=== PATIENT | male | born 1975 | race Hispanic/Latino ===

== ENCOUNTER 2019-02-12 15:47 | Inpatient (IN) | payer OTHER | END 2019-02-13 12:49 | disposition home or self-care (01) | LOC: EDH 15:47 → EDHIP 20:17 ==

== ENCOUNTER 2020-02-16 11:49 | Emergency (ER) | payer OTHER, SELFPAY ==
[~2020-02-16 11:49] MED LIST: [UNRECOGNIZED DRUG - MIXTURE] PO
[2020-02-16] MEDS ORDERED: ONDANSETRON HCL 4 MG/2 ML VIAL ONE (12:20)
[2020-02-16] MEDS ORDERED: SODIUM CHLORIDE 0.9% 1000ML 1,000 ML IV ONE ×2 (12:22→13:48)
[2020-02-16] MEDS ORDERED: INSULIN HUMULIN R 100 UNIT/ML 3ML ONE (12:22)
[2020-02-16 12:27] LABS: BASOPHILS % (AUTO) 0.9 % (0.0-5.0); EOSINOPHILS % (AUTO) 1.3 % (0.0-8.0); HEMATOCRIT 43.3 % (42-54); LYMPHOCYTES % (AUTO) 32.6 % (21.0-51.0); MEAN CORPUSCULAR HEMOGLOBIN 29.6 pg (27.0-33.0); MEAN CORPUSCULAR HGB CONC 33.9 g/dL (32.0-36.0); MEAN CORPUSCULAR VOLUME 87.3 fL (79-99); MONOCYTES % (AUTO) 8.3 % (3.0-13.0); NEUTROPHILS % (AUTO) 56.7 % (40.0-77.0); PLATELET COUNT (AUTO) 229 K/uL (130-400); RED BLOOD CELL COUNT(AUTO) 4.96 MIL/uL (4.50-6.20); RED CELL DISTRIBUTION WIDTH 12.4 % (11.0-15.5); WHITE BLOOD COUNT (AUTO) 4.6 K/uL (4.8-10.8)
[2020-02-16 12:39] LABS: APPEARANCE,URINE CLEAR (CLEAR); BILIRUBIN,URINE NEGATIVE (NEGATIVE); COLOR,URINE YELLOW (YELLOW); GLUCOSE, URINE (UA) >=1000 mg/dL (NEGATIVE); KETONES,URINE NEGATIVE (NEGATIVE); LEUKOCYTE ESTERASE ,URINE NEGATIVE (NEGATIVE); NITRATE,URINE NEGATIVE (NEGATIVE); OCCULT BLOOD,URINE NEGATIVE (NEGATIVE); PROTEIN,URINE 30 mg/dL (NEGATIVE); UROBILINOGEN,URINE 0.2 mg/dL (0.2-1.0)
[2020-02-16 12:47] LABS: AMPHET/METH SCREEN,URINE NEGATIVE (NEGATIVE); BARBITURATE SCREEN, URINE NEGATIVE (NEGATIVE); BENZODIAZEPINES SCREEN,URINE NEGATIVE (NEGATIVE); CANNABINOID SCREEN,URINE NEGATIVE (NEGATIVE); COCAINE SCREEN,URINE NEGATIVE (NEGATIVE); OPIATE SCREEN,URINE NEGATIVE (NEGATIVE); PHENCYCLIDINE SCREEN,URINE NEGATIVE (NEGATIVE)
[2020-02-16 12:48] LABS: CREATININE 1.4 mg/dL (0.5-1.5); POTASSIUM 3.9 mmol/L (3.5-5.1)
[2020-02-16 12:49] LABS: BACTERIA,URINE None Seen /HPF (None Seen); RBC,URINE None Seen /HPF (0-1); SQUAMOUS EPITHELIAL CELL,UR 0-2 /HPF (0-2); WBC,URINE 0-1 /HPF (0-1)
[2020-02-16 12:53] LABS: BILIRUBIN,TOTAL 0.5 mg/dL (0.2-1.0)
== END 2020-02-16 15:22 | disposition home or self-care (01) ==
LOC: EDH 11:49
DX: E11.65 Type 2 diabetes mellitus with hyperglycemia (principal); R51 Headache; E86.0 Dehydration
CPT/HCPCS: 36415; 80053; 80305; 81001; 82010; 82550; 82948 ×2; 84484; 85025; 93005; 96361; 96374; 96375; 99284; J1815; J2405; J7030 ×2

== ENCOUNTER 2022-02-12 10:27 | Emergency (ER) | payer OTHER ==
[~2022-02-12] VITALS: Ht 165.1 cm; Wt 57.6 kg
[2022-02-12 10:32] VITALS: BP 121/79
[2022-02-12 10:47] LABS: BASOPHILS % (AUTO) 0.6 % (0.0-5.0); EOSINOPHILS % (AUTO) 0.7 % (0.0-8.0); LYMPHOCYTES % (AUTO) 20.4 % (21.0-51.0); MEAN CORPUSCULAR HEMOGLOBIN 29.7 pg (27.0-33.0); MEAN CORPUSCULAR HGB CONC 33.9 g/dL (32.0-36.0); MEAN CORPUSCULAR VOLUME 87.4 fL (79-99); MONOCYTES % (AUTO) 5.5 % (3.0-13.0); NEUTROPHILS % (AUTO) 72.5 % (40.0-77.0); PLATELET COUNT (AUTO) 221 K/uL (130-400); RED BLOOD CELL COUNT(AUTO) 4.35 MIL/uL (4.50-6.20); RED CELL DISTRIBUTION WIDTH 12.3 % (11.0-15.5); WHITE BLOOD COUNT (AUTO) 6.8 K/uL (4.8-10.8)
[2022-02-12 11:46] LABS: CREATININE 1.3 mg/dL (0.5-1.5); POTASSIUM 3.7 mmol/L (3.5-5.1)
[2022-02-12 11:49] LABS: TOTAL PROTEIN, SERUM 7.6 g/dL (6.0-8.3)
[2022-02-12 12:48] LABS: APPEARANCE,URINE CLEAR (CLEAR); BILIRUBIN,URINE NEGATIVE (NEGATIVE); COLOR,URINE YELLOW (YELLOW); GLUCOSE, URINE (UA) >=1000 mg/dL (NEGATIVE); KETONES,URINE NEGATIVE (NEGATIVE); LEUKOCYTE ESTERASE ,URINE NEGATIVE (NEGATIVE); NITRATE,URINE NEGATIVE (NEGATIVE); OCCULT BLOOD,URINE TRACE-INTACT (NEGATIVE); PH,URINE 5.5 (5.0-8.0); PROTEIN,URINE 30 mg/dL (NEGATIVE); UROBILINOGEN,URINE 0.2 mg/dL (0.2-1.0)
[2022-02-12] MEDS ORDERED: 0.9%NACL 1000ML 1,000 ML IV SCH ×2 (13:00→14:00)
[2022-02-12] MEDS ORDERED: INSULIN HUMULIN R 100 UNIT/ML 3ML IV ONE (13:00)
[2022-02-12] MEDS ORDERED: MECLIZINE HCL 25 MG TABLET PO ONE (13:00)
[2022-02-12 13:03] LABS: BACTERIA,URINE Rare /HPF (None Seen); RBC,URINE 0-1 /HPF (0-1); SQUAMOUS EPITHELIAL CELL,UR Rare /HPF (0-2); WBC,URINE 0-1 /HPF (0-1)
[2022-02-12] MEDS ORDERED: FLUCONAZOLE 100 MG TAB PO SCH (13:30)
[2022-02-12 13:34] LABS: AMPHET/METH SCREEN,URINE NEGATIVE (NEGATIVE); BARBITURATE SCREEN, URINE NEGATIVE (NEGATIVE); BENZODIAZEPINES SCREEN,URINE NEGATIVE (NEGATIVE); CANNABINOID SCREEN,URINE NEGATIVE (NEGATIVE); COCAINE SCREEN,URINE NEGATIVE (NEGATIVE); PHENCYCLIDINE SCREEN,URINE NEGATIVE (NEGATIVE)
[2022-02-12 13:34] LABS: CREATINE KINASE, TOTAL 51 U/L (21-232); CRP QUANTITATIVE < 2.00 mg/L (0.00-9.0)
[2022-02-12] MEDS ORDERED: MECL-160 PO (13:42)
== END 2022-02-12 14:49 | disposition home or self-care (01) ==
LOC: EDH 10:27
DX: I95.1 Orthostatic hypotension (principal); E86.0 Dehydration; E11.65 Type 2 diabetes mellitus with hyperglycemia; R42 Dizziness and giddiness
CPT/HCPCS: 99285; 96374; 71045; 82550; 84484; 80053; 80305; 85025; 82948 ×2; 86140; 36415; 93005; 81001; J1815; J7030

== ENCOUNTER 2023-10-16 13:50 | Emergency (ER) | payer OTHER ==
[~2023-10-16] VITALS: Ht 165.1 cm; Wt 63.0 kg
[~2023-10-16 13:50] MED LIST changes: +MECL-302 PO
[2023-10-16 14:43] LABS: BASOPHILS # (AUTO) 0.04 K/uL (0.00-0.20); BASOPHILS % (AUTO) 0.4 % (0.0-5.0); EOSINOPHILS # (AUTO) 0.11 K/uL (0.00-0.70); EOSINOPHILS % (AUTO) 1.2 % (0.0-8.0); HEMATOCRIT 32.1 % (42-54); IMMATURE GRANULOCYTE ABSOLUTE 0.03 K/uL (0-1); LYMPHOCYTES # (AUTO) 2.2 K/uL (1.0-4.8); LYMPHOCYTES % (AUTO) 23.9 % (21.0-51.0); MEAN CORPUSCULAR HEMOGLOBIN 28.7 pg (27.0-33.0); MEAN CORPUSCULAR HGB CONC 34.6 g/dL (32.0-36.0); MEAN CORPUSCULAR VOLUME 82.9 fL (79-99); MONOCYTES # (AUTO) 0.5 K/uL (0.1-1.0); MONOCYTES % (AUTO) 5.3 % (3.0-13.0); NEUTROPHILS # (AUTO) 6.3 K/uL (1.8-7.7); NEUTROPHILS % (AUTO) 68.9 % (40.0-77.0); PLATELET COUNT (AUTO) 306 K/uL (130-400); RED BLOOD CELL COUNT(AUTO) 3.87 MIL/uL (4.50-6.20); WHITE BLOOD COUNT (AUTO) 9.2 K/uL (4.8-10.8)
[2023-10-16 14:59] LABS: CREATININE 1.7 mg/dL (0.5-1.3)
[2023-10-16 15:04] LABS: ALBUMIN 3.3 g/dL (3.5-5.0); BILIRUBIN,TOTAL 0.3 mg/dL (0.2-1.0); TOTAL PROTEIN, SERUM 6.8 g/dL (6.0-8.3)
[2023-10-16] MEDS: 0.9%NACL 1000ML 1,000 ML IV ONE (16:24)
[2023-10-16] MEDS ORDERED: INSULIN HUMULIN R 100 UNIT/ML 3ML SQ ONE (18:30)
[2023-10-16 18:56] VITALS: BP 166/87; PULSE 76; RESP 16; O2SAT 98
[2023-10-16 18:57] LABS: APPEARANCE,URINE CLEAR (CLEAR); BILIRUBIN,URINE NEGATIVE (NEGATIVE); COLOR,URINE COLORLESS (YELLOW); GLUCOSE, URINE (UA) >=1000 mg/dL (NEGATIVE); KETONES,URINE NEGATIVE (NEGATIVE); LEUKOCYTE ESTERASE ,URINE NEGATIVE Leu/uL (NEGATIVE); NITRATE,URINE NEGATIVE (NEGATIVE); PH,URINE 5.5 (5.0-8.0); PROTEIN,URINE NEGATIVE (NEGATIVE); UROBILINOGEN,URINE 0.2 mg/dL (0.2-1.0)
[2023-10-16 19:03] LABS: ADD UA MICROSCOPIC YES
[2023-10-16 19:05] LABS: MUCUS,URINE RARE LPF (None Seen); SQUAMOUS EPITHELIAL CELL,UR RARE /HPF (0-2); WBC,URINE 0-1 /HPF (0-1)
== END 2023-10-16 19:06 | disposition home or self-care (01) ==
LOC: EDH 13:50
DX: E86.0 Dehydration (principal); E11.65 Type 2 diabetes mellitus with hyperglycemia; E78.00 Pure hypercholesterolemia, unspecified; I10 Essential (primary) hypertension
CPT/HCPCS: 99285; 96360; 96361; 84484; 80053; 85025; 82948; 81001; 36415; 93005; J7030

== ENCOUNTER 2024-10-07 14:02 | Inpatient (IN) | payer SELFPAY ==
[~2024-10-07] VITALS: Ht 165.1 cm; Wt 62.0 kg
[2024-10-07 15:05] LABS: BASOPHILS # (AUTO) 0.05 K/uL (0.00-0.20); BASOPHILS % (AUTO) 0.8 % (0.0-5.0); EOSINOPHILS # (AUTO) 0.08 K/uL (0.00-0.70); EOSINOPHILS % (AUTO) 1.2 % (0.0-8.0); HEMATOCRIT 34.4 % (42-54); IMMATURE GRANULOCYTE ABSOLUTE 0.01 K/uL (0-1); LYMPHOCYTES # (AUTO) 2.1 K/uL (1.0-4.8); MEAN CORPUSCULAR HEMOGLOBIN 29.1 pg (27.0-33.0); MEAN CORPUSCULAR HGB CONC 33.7 g/dL (32.0-36.0); MEAN CORPUSCULAR VOLUME 86.4 fL (79-99); MONOCYTES # (AUTO) 0.6 K/uL (0.1-1.0); MONOCYTES % (AUTO) 8.4 % (3.0-13.0); NEUTROPHILS # (AUTO) 3.8 K/uL (1.8-7.7); NEUTROPHILS % (AUTO) 57.4 % (40.0-77.0); PLATELET COUNT (AUTO) 216 K/uL (130-400); RED BLOOD CELL COUNT(AUTO) 3.98 MIL/uL (4.50-6.20); RED CELL DISTRIBUTION WIDTH 12.6 % (11.0-15.5); WHITE BLOOD COUNT (AUTO) 6.5 K/uL (4.8-10.8)
[2024-10-07 15:18] LABS: CREATININE 1.1 mg/dL (0.5-1.3); POTASSIUM 5.4 mmol/L (3.5-5.1)
[2024-10-07 15:54] LABS: ALBUMIN 3.8 g/dL (3.5-5.0); BILIRUBIN,DIRECT 0.1 mg/dL (0.0-0.3); BILIRUBIN,TOTAL 0.2 mg/dL (0.2-1.0); TOTAL PROTEIN, SERUM 7.6 g/dL (6.0-8.3)
[2024-10-07 16:26] LABS: APPEARANCE,URINE CLEAR (CLEAR); BILIRUBIN,URINE NEGATIVE (NEGATIVE); COLOR,URINE LIGHT-YELLOW (YELLOW); GLUCOSE, URINE (UA) >=1000 mg/dL (NEGATIVE); KETONES,URINE NEGATIVE (NEGATIVE); LEUKOCYTE ESTERASE ,URINE NEGATIVE Leu/uL (NEGATIVE); NITRATE,URINE NEGATIVE (NEGATIVE); PH,URINE 5.5 (5.0-8.0); PROTEIN,URINE 10 mg/dL (NEGATIVE); UROBILINOGEN,URINE 0.2 mg/dL (0.2-1.0)
[2024-10-07 16:27] LABS: BACTERIA,URINE RARE /HPF (None Seen); RBC,URINE 0-1 /HPF (0-1); SQUAMOUS EPITHELIAL CELL,UR RARE /HPF (0-2); WBC,URINE 0-1 /HPF (0-1)
[2024-10-07 16:32] LABS: AMPHET/METH SCREEN,URINE NEGATIVE (NEGATIVE); BARBITURATE SCREEN, URINE NEGATIVE (NEGATIVE); BENZODIAZEPINES SCREEN,URINE NEGATIVE (NEGATIVE); CANNABINOID SCREEN,URINE NEGATIVE (NEGATIVE); COCAINE SCREEN,URINE NEGATIVE (NEGATIVE); OPIATE SCREEN,URINE NEGATIVE (NEGATIVE); PHENCYCLIDINE SCREEN,URINE NEGATIVE (NEGATIVE)
[2024-10-07] MEDS: 0.9%NACL 1000ML 1,000 ML IV ONE (16:48)
[2024-10-07] MEDS: metoCLOPRAmide 10 MG/2 ML VIAL IVP ONE (16:49)
[2024-10-07] MEDS: ketOROlac 15MG/ML VIAL (15MG/ML) IV ONE (16:49)
[2024-10-07] MEDS: DiphenhydrAMINE HCL 50 MG/ML VIAL IV ONE (16:49)
--- NOTE | 2024-10-07 16:52 | EKG ---
[facility] Test Date: 2024-10-07 Test Time: 16:50:44 Pat Name: BRYNN BECERRA Department: ED Room: 413 Gender: M Java Analyst: [id number] Requested By: ROSA INMAN Order Number: [id number] Reading MD: Giovanni Dawn Measurements Intervals [place] Rate: 96 P: 64 NE: 179 QRS: 14 QRSD: 96 T: 36 QT: 346 QTc: 437 Interpretive Statements Sinus rhythm Compared to ECG 10/16/2023 14:17:13 No significant changes Electronically Signed On 10-08-2024 20:48:07 CDT by Giovanni Dawn Please click the below link to view image of tracing.
--- NOTE | 2024-10-07 16:58 | ERN ---
General Chief Complaint: Dizzy/Light Headed Stated Complaint: DIZZY Time Seen by MD: 14:08 Time Seen by Midlevel: 14:08 Source: patient History of Present Illness Initial Comments 49-year-old male who presents to the emergency department due to dizziness onset five days. Reports headache, nausea, diarrhea but denies any fever, dysuria, abdominal pain, vomiting or further associated symptoms. PMHx DM, HTN Allergies: Coded Allergies: No Known Drug Allergies (Verified Allergy, 11/29/11) Home Meds Active Scripts Meclizine HCl (Meclizine HCl) 25 Mg Tablet, 25 MG PO TIDP, #30 TAB Prov:CASSIE VICK 02/12/22 Reported Medications [Metformina/Gliben.] 50,0/5 TAB No Conflict Check, 1 PO BIDMEALS 02/13/19 Past Medical History Past Medical History: Diabetes-Type I, Diabetes-Type II, High Cholesterol, Hypertension Medical History Other: NON CPMPLIANT W/MEDS Past Surgical History: None Family History Family History: Negative Social History Social History: Negative ROS Dictation Constitutional: Negative for fever,chills, and weight loss Eyes: Negative for injury, pain,redness, and discharge ENT: Negative for injury,pain or swelling Cardiovascular: Negative for chest pain, palpitations, and edema Respiratory: Negative for shortness of breath, cough, and wheezing, Abdomen/GI: Positive diarrhea, nausea Negative for abdominal pain, vomiting, and constipation Back: Negative for injury and pain : Negative for painful urination, bleeding or discharge MS/Extremity: Negative for injury and deformity Skin: Negative for rash, and discoloration Neuro: Positive for headache, dizziness Negative for weakness, numbness, tingling, and seizure Psych: Negative for suicide ideation, homicidal ideation, and hallucinations Physical Exam Physical Exam Dictation General: awake, alert, no acute distress Head/Face: Normocephalic, atraumatic Eyes: PERRL, EOMI, normal conjunctiva ENT: oral cavity clear, oral mucosa moist Neck: Supple, normal range of motion Cardiovascular: RRR, normal S1/S2 Respiratory: CTAB, no respiratory distress, no rales or wheezes Abdomen: Soft, non-tender, non-distended, no guarding or rebound. Skin: Warm, dry, normal turgor, no rash MS/Extremity: Pulses equal, no cyanosis, neurovascular intact, FROM Neuro: COAx4, GCS 15, strength 5/5, CN 2-12 intact, normal cerebellar exam, normal gait Psych: Normal behavior, mood, and affect normal Results Laboratory and Microbiology Lab and Micro Result Laboratory Tests Test 10/07/24 14:10 10/07/24 14:52 10/07/24 16:10 10/07/24 19:26 Total Bilirubin 0.2 mg/dL (0.2-1.0) Direct Bilirubin 0.1 mg/dL (0.0-0.3) Aspartate Amino Transf (AST/SGOT) 13 U/L (10-37) Alanine Aminotransferase (ALT/SGPT) 19 U/L (12-78) Alkaline Phosphatase 105 U/L (50-136) Total Protein 7.6 g/dL (6.0-8.3) Albumin 3.8 g/dL (3.5-5.0) Lipase 58 U/L (16-77) White Blood Count 6.5 K/uL (4.8-10.8) Red Blood Count 3.98 MIL/uL (4.50-6.20) L Hemoglobin 11.6 g/dL (14.0-18.0) L Hematocrit 34.4 % (42-54) L Mean Corpuscular Volume 86.4 fL (79-99) Mean Corpuscular Hemoglobin 29.1 pg (27.0-33.0) Mean Corpuscular Hemoglobin Concent 33.7 g/dL (32.0-36.0) Red Cell Distribution Width 12.6 % (11.0-15.5) Platelet Count 216 K/uL (130-400) Mean Platelet Volume 10.9 fL (7.5-10.5) H Immature Granulocyte % (Auto) 0.2 % (0-1) Neutrophils (%) (Auto) 57.4 % (40.0-77.0) Lymphocytes (%) (Auto) 32.0 % (21.0-51.0) Monocytes (%) (Auto) 8.4 % (3.0-13.0) Eosinophils (%) (Auto) 1.2 % (0.0-8.0) Basophils (%) (Auto) 0.8 % (0.0-5.0) Neutrophils # (Auto) 3.8 K/uL (1.8-7.7) Lymphocytes # (Auto) 2.1 K/uL (1.0-4.8) Monocytes # (Auto) 0.6 K/uL (0.1-1.0) Eosinophils # (Auto) 0.08 K/uL (0.00-0.70) Basophils # (Auto) 0.05 K/uL (0.00-0.20) Absolute Immature Granulocyte (auto 0.01 K/uL (0-1) Nucleated Red Blood Cells 0.0 % (0.0-0.19) Sodium Level 133 mmol/L (136-145) L Potassium Level 5.4 mmol/L (3.5-5.1) H Chloride Level 98 mmol/L (101-111) L Carbon Dioxide Level 29 mmol/L (21-32) Blood Urea Nitrogen 21 mg/dL (7-18) H Creatinine 1.1 mg/dL (0.5-1.3) Glomerular Filtration Rate Calc 83 mL/min (>90) Random Glucose 264 mg/dL (70-105) H Total Calcium 9.3 mg/dL (8.5-10.1) Urine Color LIGHT-YELLOW (YELLOW) Urine Appearance CLEAR (CLEAR) Urine pH 5.5 (5.0-8.0) Urine Specific [place] 1.024 (1.001-1.031) Urine Protein 10 mg/dL (NEGATIVE) H Urine Glucose (UA) >=1000 mg/dL (NEGATIVE) H Urine Ketones NEGATIVE mg/dL (NEGATIVE) Urine Occult Blood +- (TRACE) (NEGATIVE) H Urine Nitrate NEGATIVE (NEGATIVE) Urine Bilirubin NEGATIVE mg/dL (NEGATIVE) Urine Urobilinogen 0.2 mg/dL (0.2-1.0) Urine Leukocyte Esterase NEGATIVE Romi/uL Urine RBC 0-1 /HPF (0-1) Urine WBC 0-1 /HPF (0-1) Urine Squamous Epithelial Cells RARE /HPF (0-2) Urine Bacteria RARE /HPF (None Seen) Urine Opiates Screen NEGATIVE (NEGATIVE) Urine Barbiturates Screen NEGATIVE (NEGATIVE) Urine Phencyclidine Screen NEGATIVE (NEGATIVE) Urine Amphetamines Screen NEGATIVE (NEGATIVE) Urine Benzodiazepines Screen NEGATIVE (NEGATIVE) Urine Cocaine Screen NEGATIVE (NEGATIVE) Urine Marijuana (THC) Screen NEGATIVE (NEGATIVE) Whole Blood Glucose 296 MG/DL (70-110) H Labs Reviewed?: Yes EKG/XRAY/US/CT/MRI EKG Comment Date: 10/07/2024 Time: 16:50 Rate: 96 EKG interpretation: Sinus rhythm, no STEMI, normal EKG Reviewed by ED Attending CT Scan Comment REASON: Headache ORDERING PHYSICIAN: ROSA INMAN PROCEDURE: HEAD WO - CT HEAD/BRAIN W/O CONTRAST Exam Type: CT HEAD/BRAIN W/O CONTRAST Clinical Information: Headache Comparison: None CT Dose Index (CTDI): 57.33 mGy Dose Length Product (DLP): 956.79 total mGy-cm Findings: The examination is unremarkable. Wood-white matter junction is preserved. No intra or extra axial lesions or fluid collections are seen. Specifically, wood and white matter are normal in signal characteristics with normal caliber of ventricles and periventricular cisterns with no evidence of intra or or extra-axial hemorrhage, lacunar infarct, or major territorial infarct, mass, or other abnormality. There are no infarcts. There are no hemorrhages. Periventricular white matter locations are preserved. The orbital contents and structures of the posterior fossa are intact. Impression: Normal CT of the head. This study was performed using dose reduction techniques to include automated exposure control and/or adjustment of the mA and/or kV according to patient size. DICTATED BY: SARANYA BHAGAT MD DATE: 10/07/241714 [facility] MDM: Differential diagnosis: Dehydration, electrolyte imbalance, intracranial abnormality Rationale:49-year-old male who presents to the emergency department due to dizziness onset five days. Reports headache, nausea, diarrhea but denies any fever, dysuria, abdominal pain, vomiting or further associated symptoms. PMHx DM, HTN Per physical examination patient is in no acute distress, nonlabored breathing, abdomen is soft nontender, neurologically intact. Patient received IV fluids, ketorolac, Reglan and Benadryl headache. Labs obtained indicate a mild anemia with hemoglobin 11.6, mild dehydration with sodium of 133, chloride of 98, BUN 21. Hyperkalemia with 5.4 potassium, calcium gluconate, dextrose, insulin, albuterol, K-Lyte, furosemide administered. CT head within normal limits no a cute abnormalities. Patient vitals stable during ED visit. Patient was educated on findings, diagnosis, decision for admission. Patient verbalized understanding and agrees with admission. Case discussed with hospitalist who accepted admission. Previous outside records reviewed: Old ER visits. Risk of complication and/or morbidity or mortality of patient management: None Medications-Per medication reconciliation Need for hospitalization: Patient does meet criteria for hospitalization. Need for emergency major/minor surgery: No There are no social concerns with this patient. Prescription drug management Prescriptions will include symptomatic care Patient's prior external medical records from other ER visits were reviewed by me as indicated. Prior testing and results from previous visits were reviewed. Prior tests were taken into account with medical decision making and resource utilization, independent historian/historians were used to obtain complete medical history. I independently interpreted the test that were performed, results were reviewed by me and considered findings on radiology if ordered. Medical management and examination interpretation discussions were had by me with other qualified healthcare professionals as indicated for the patient's care. ED Course Orders Procedure Category Date Status Time Cbc With Differential LAB 10/07/24 Complete 14:30 Basic Metabolic Panel LAB 10/07/24 Complete 14:30 Urinalysis LAB 10/07/24 Complete W/Microscopic 14:30 Drug Screen Urine LAB 10/07/24 Complete 14:30 0.9%Nacl 1000ml (Ns PHA 10/07/24 Complete 1000ml) 14:30 Lipase LAB 10/07/24 Complete 14:52 Hepatic Function Panel LAB 10/07/24 Complete 14:52 Metoclopramide 10 PHA 10/07/24 Complete Mg/2 Ml Vial (Reglan 1 15:00 Diphenhydramine Hcl PHA 10/07/24 Complete (Benadryl Inj) 15:00 Ketorolac PHA 10/07/24 Complete Tromethamine 15mg/Ml 15:00 12 Lead Ekg Tracing- EKG 10/07/24 Complete Technical 16:42 Calcium Gluc 1gm PHA 10/07/24 Complete (Calcium Gluc 1gm 17:30 Insulin Regular, PHA 10/07/24 Complete Human 3ml (Humulin R 17:00 Albuterol 0.083% PHA 10/07/24 Complete 2.5mg/3ml (Proventil 17:30 Sodium Polystyr Sulf PHA 10/07/24 In Process 15gm (Kayexalate 15 17:00 Furosemide 40mg Soln PHA 10/07/24 Complete Udcup (Lasix 40mg S 17:00 Ct Head/Brain W/O CT 4/23/25 Resulted Contrast 16:57 Dextrose 50%-Water PHA 10/07/24 Complete (D50w) 17:00 Vital Signs(Adult CPOE 10/07/24 Transmitted Hospitalist) 18:23 Nurse To Enter Home CPOE 10/07/24 Transmitted Medication 18:23 Admit Orders ADM 10/07/24 Transmitted 18:23 0.9% Nacl 500ml PHA 10/07/24 Complete Iv.Soln (Ns 500ml 20:00 0.9%Nacl 1000ml (Ns PHA 10/07/24 In Process 1000ml) 20:00 Current Medications Medications (Trade) Dose Ordered Sig/Anjana Route PRN Reason Start Time Stop Time Status Last Admin Dose Admin Albuterol Sulfate (Proventil 0.083% 2.5mg/3ml) 10 mg ONCE ONCE IH 10/07/24 17:30 10/07/24 17:31 DC 10/07/24 17:35 Calcium Gluconate 1 gm/Sodium Chloride 110 ml @ 110 mls/hr ONCE ONCE IV 10/07/24 17:30 10/07/24 18:29 DC 10/07/24 18:01 Dextrose (D50w) 50 ml ONCE ONCE IV 10/07/24 17:00 10/07/24 17:07 DC 10/07/24 17:33 Diphenhydramine HCl (BENAdryl INJ) 25 mg ONCE ONCE IV 10/07/24 15:00 10/07/24 15:23 DC 10/07/24 16:49 Furosemide (LASix 40MG SOLN UD CUP) 40 mg ONCE ONCE PO 10/07/24 17:00 10/07/24 17:01 DC 10/07/24 17:26 Insulin Human Regular (humuLIN R 100 UNIT/ML 3ML) 5 unit ONCE ONCE IV 10/07/24 17:00 10/07/24 17:01 DC 10/07/24 17:36 Ketorolac Tromethamine (toRADol) 15 mg ONCE ONCE IV 10/07/24 15:00 10/07/24 15:22 DC 10/07/24 16:49 Metoclopramide HCl (regLAN 10MG IV) 10 mg ONCE ONCE IVP 10/07/24 15:00 10/07/24 15:24 DC 10/07/24 16:49 Sodium Polystyrene Sulfonate (kayEXALate 15 GM/60 ML) 30 gm ONCE PO 10/07/24 17:00 10/08/24 17:01 10/07/24 17:28 Sodium Chloride 500 ml @ 0 mls/hr Q0M ONCE IV 10/07/24 20:00 10/07/24 20:01 DC 10/07/24 20:03 Sodium Chloride 1,000 ml @ 0 mls/hr ONCE ONCE IV 10/07/24 14:30 10/07/24 14:31 DC 10/07/24 16:48 Sodium Chloride 1,000 ml @ 125 mls/hr Q8H IV 10/07/24 20:00 11/06/24 19:59 Vital Signs Date Time Temp Pulse Resp B/P (MAP) Pulse Ox O2 Delivery O2 Flow Rate FiO2 10/07/24 17:35 97 18 10/07/24 14:03 98.2 95 16 144/99 99 Room Air 0 DX & DISP Disposition: Inpatient Decision to Admit Date: Oct 07, 2024 Departure Impression: Primary Impression: Hyperkalemia Additional Impression: Dehydration Condition: Stable Referrals: SELF,REFERRAL (PCP) I performed the substantive portion of the visit. I have reviewed and personally made and approve the management plan that is documented in the notes by myself or the FRANKLIN. I acknowledge full responsibility for the patient's management plan. ROSA INMAN Oct 07, 2024 16:58
--- NOTE | 2024-10-07 17:19 | HMCIMG ---
Exam Type: CT HEAD/BRAIN W/O CONTRAST Clinical Information: Headache Comparison: None CT Dose Index (CTDI): 57.33 mGy Dose Length Product (DLP): 956.79 total mGy-cm Findings: The examination is unremarkable. Wood-white matter junction is preserved. No intra or extra axial lesions or fluid collections are seen. Specifically, wood and white matter are normal in signal characteristics with normal caliber of ventricles and periventricular cisterns with no evidence of intra or or extra-axial hemorrhage, lacunar infarct, or major territorial infarct, mass, or other abnormality. There are no infarcts. There are no hemorrhages. Periventricular white matter locations are preserved. The orbital contents and structures of the posterior fossa are intact. Impression: Normal CT of the head. This study was performed using dose reduction techniques to include automated exposure control and/or adjustment of the mA and/or kV according to patient size.
[2024-10-07] MEDS: kayEXALate 15GM/60ML PO NR (17:28)
[2024-10-07] MEDS: DEXTROSE 50%-WATER 50 ML DISP.SYRIN IV ONE (17:33)
[2024-10-07 17:35] VITALS: PULSE 97; RESP 18
[2024-10-07] MEDS: ALBUTEROL 0.083% 2.5 MG/3 ML INH IH ONE (17:35)
[2024-10-07] MEDS: INSULIN humuLIN R 100 UNIT/ML 3ML IV ONE (17:36)
[2024-10-07] MEDS: CALCIUM GLUC 1GM 1 GM in 0.9%NACL 100ML 100 ML IV ONE (18:01)
--- NOTE | 2024-10-07 18:55 | HP ---
[facility] Date of Service: Oct 07, 2024 Time of Service: 18:55 PCP: Self-referral HISTORY OF PRESENT ILLNESS: This is a 49-year-old Latvian-speaking male past medical history of diabetes , hypertension hyperlipidemia and medical noncompliance who presents to the ED for complaints of dizziness and headache which started five days ago and symptoms had been tolerable however last night he started having non bloody diarrhea x6 episodes and last diarrhea episode was around 0300 am today and patient states dizziness and headache has become more worse so he decided to come tot he ED for evaluation.Patient states he does not have a PCP and only meds he took is metformin 1000mg bid he said. Seen and examined patient in the ED awake,alert and coherent. Latest vital signs temperature 98.2, heart rate 100, blood pressure 128/88 saturation 100% on room air. Labs hemoglobin 11, hematocrit 34, platelet count 216. Sodium 133, potassium 5.4 to 4 , chloride 98, BUN 21, creatinine 1.1 GFR 83 blood sugar 264. Urine toxicology negative. Urinalysis significant with protein, glucose and trace occult blood. CT head result revealed normal. While in the ER patient received 1.5 L NS bolus, Reglan 10 mg IV, Benadryl 25 mg IV, Toradol 15 mg IV, D50 50 mL IV, insulin 5 units IV, Kayexalate 30 g p.o., Lasix 40 mg p.o., calcium gluconate IV, DuoNeb. We will admit patient for further medical jatinder gement REVIEW OF SYSTEMS CONSTITUTIONAL: Denies fevers, chills, or night sweats. No unintentional weight loss reported. NEUROLOGICAL: Complain of headache and dizziness Denies amaurosis fugax, motor weakness, sensory deficit, gait abnormalities, or tremors. ENT: No hearing loss, otalgia, otorrhea, rhinitis, rhinorrhea, hoarseness, or sore throat. CARDIOVASCULAR: Denies any exertional angina, dyspnea on exertion, orthopnea, paroxysmal nocturnal dyspnea, palpitations, life-threatening arrhythmias, claudication. PULMONARY: Denies any shortness of breath, cough, phlegm/sputum, hemoptysis, pleuritic chest pain. SLEEP: Denies morning headaches, daytime somnolence or napping. Denies difficulty falling asleep, staying asleep, waking from sleep. Denies knowledge of snoring. GASTROINTESTINAL: Complained of diarrhea Denies any type of dysphagia to either liquids or solids. Denies nausea, vomiting, pyrosis, early satiety, abdominal pain, diarrhea, constipation, or changes in stool consistency or caliber. Denies coffee-ground emesis, hematemesis, hematochezia, or melanotic stools. GENITOURINARY: Denies frequency, urgency, nocturia, hematuria or incontinence (Storage/Irritative symptoms.) Low urinary stream, straining to void, urinary intermittency or hesitancy, splitting of the voiding stream, terminal dribbling. ENDOCRINOLOGIC: Denies polyuria, polydipsia, polyphagia or heat/cold intoleran amee. HEMATOLOGIC: Denies thrombophilia/previous clots, or coagulopathy/bleeding disorders. ONCOLOGIC: Denies personal history of malignancy. DERMATOLOGIC: Denies rashes or pruritus. PSYCHIATRIC: Denies any suicidal or homicidal ideation. Denies hallucinations. PAST MEDICAL HISTORY: [Medical noncompliance, Diabetes, hypertension and hyperlipidemia ] PAST SURGICAL HISTORY: [ Patient denies] PAST SOCIAL HISTORY: [ Patient lives with girlfriend. Patient denies alcohol tobacco and recreational drug use ] FAMILY HISTORY: [ Noncontributory ] Coded Allergies: No Known Drug Allergies (Verified Allergy, 11/29/11) PHYSICAL EXAM GENERAL APPEARANCE: The patient is awake, alert, and oriented, in no acute cardiopulmonary distress. NEUROLOGICAL: Cranial nerves II-XII grossly intact. Motor is 5/5 in bilateral upper and lower extremities proximal to distal. No sensory deficits. HEENT: Face is symmetric. Pupils are equal and reactive. Extraocular movements are intact. NECK: Supple. No JVD. No thyromegaly. No submental, submandibular, pre- /postauricular, occipital or supraclavicular lymphadenopathy. CHEST: Normal chest expansion. No Telemetry. LUNGS: Absence of any rales, rhonchi or any wheezing. CARDIOVASCULAR: Regular. S1 and S2 normal. No appreciable rubs, murmurs or gallops. ABDOMEN: Soft, nontender, and nondistended. There is no rebound, voluntary guarding, or rigidity. : Deferred. No Stinson. EXTREMITIES: Non-edematous and not cyanotic. No clubbing. Good capillary refill. SKIN: No skin breakdown. Vital Sign (Last 24 Hours) 10/07/24 10/07/24 14:03 17:35 Temp 98.2 Pulse 97 Resp 18 B/P (MAP) 144/99 Pulse Ox 99 O2 Delivery Room Air O2 Flow Rate 0 LABS: Laboratory: Test 10/07/24 16:10 10/07/24 14:52 10/07/24 14:10 Range/Units Urine Color LIGHT-YELLOW YELLOW Urine Appearance CLEAR CLEAR Urine pH 5.5 5.0-8.0 Urine Specific [place] 1.024 1.001-1.031 Urine Protein 10 H NEGATIVE mg/dL Urine Glucose (UA) >=1000 H NEGATIVE mg/dL Urine Ketones NEGATIVE NEGATIVE mg/dL Urine Occult Blood +- (TRACE) H NEGATIVE Urine Nitrate NEGATIVE NEGATIVE Urine Bilirubin NEGATIVE NEGATIVE mg/dL Urine Urobilinogen 0.2 0.2-1.0 mg/dL Urine Leukocyte Esterase NEGATIVE NEGATIVE Romi/uL Urine RBC 0-1 0-1 /HPF Urine WBC 0-1 0-1 /HPF Urine Squamous Epithelial Cells RARE 0-2 /HPF Urine Bacteria RARE None Seen /HPF Urine Opiates Screen NEGATIVE NEGATIVE Urine Barbiturates Screen NEGATIVE NEGATIVE Urine Phencyclidine Screen NEGATIVE NEGATIVE Urine Amphetamines Screen NEGATIVE NEGATIVE Urine Benzodiazepines Screen NEGATIVE NEGATIVE Urine Cocaine Screen NEGATIVE NEGATIVE Urine Marijuana (THC) Screen NEGATIVE NEGATIVE White Blood Count 6.5 4.8-10.8 K/uL Red Blood Count 3.98 L 4.50-6.20 MIL/uL Hemoglobin 11.6 L 14.0-18.0 g/dL Hematocrit 34.4 L 42-54 % Mean Corpuscular Volume 86.4 79-99 fL Mean Corpuscular Hemoglobin 29.1 27.0-33.0 pg Mean Corpuscular Hemoglobin Concent 33.7 32.0-36.0 g/dL Red Cell Distribution Width 12.6 11.0-15.5 % Platelet Count 216 130-400 K/uL Mean Platelet Volume 10.9 H 7.5-10.5 fL Immature Granulocyte % (Auto) 0.2 0-1 % Neutrophils (%) (Auto) 57.4 40.0-77.0 % Lymphocytes (%) (Auto) 32.0 21.0-51.0 % Monocytes (%) (Auto) 8.4 3.0-13.0 % Eosinophils (%) (Auto) 1.2 0.0-8.0 % Basophils (%) (Auto) 0.8 0.0-5.0 % Neutrophils # (Auto) 3.8 1.8-7.7 K/uL Lymphocytes # (Auto) 2.1 1.0-4.8 K/uL Monocytes # (Auto) 0.6 0.1-1.0 K/uL Eosinophils # (Auto) 0.08 0.00-0.70 K/uL Basophils # (Auto) 0.05 0.00-0.20 K/uL Absolute Immature Granulocyte (auto 0.01 0-1 K/uL Nucleated Red Blood Cells 0.0 0.0-0.19 % Sodium Level 133 L 136-145 mmol/L Potassium Level 5.4 H 3.5-5.1 mmol/L Chloride Level 98 L 101-111 mmol/L Carbon Dioxide Level 29 21-32 mmol/L Blood Urea Nitrogen 21 H 7-18 mg/dL Creatinine 1.1 0.5-1.3 mg/dL Glomerular Filtration Rate Calc 83 >90 mL/min Random Glucose 264 H 70-105 mg/dL Total Calcium 9.3 8.5-10.1 mg/dL Total Bilirubin 0.2 0.2-1.0 mg/dL Direct Bilirubin 0.1 0.0-0.3 mg/dL Aspartate Amino Transf (AST/SGOT) 13 10-37 U/L Alanine Aminotransferase (ALT/SGPT) 19 12-78 U/L Alkaline Phosphatase 105 50-136 U/L Total Protein 7.6 6.0-8.3 g/dL Albumin 3.8 3.5-5.0 g/dL Lipase 58 16-77 U/L Current Medications Medications (Trade) Dose Ordered Sig/Anjana Route PRN Reason Start Time Stop Time Status Last Admin Dose Admin Sodium Polystyrene Sulfonate (kayEXALate 15 GM/60 ML) 30 gm ONCE PO 10/07/24 17:00 10/08/24 17:01 10/07/24 17:28 30 GM DIAGNOSTICS / RADIOLOGY: [ ] ASSESSMENT: Dehydration POA Hyperkalemia POA Normocytic normochromic anemia POA Uncontrolled diabetes POA Hypertension POA Diarrhea POA Medical noncompliance POA PLAN: We will admit patient in medical telemetry We will start with consistent carb diet We will give 500 mL NS bolus x1 We will start NS @ 125ml / hr x2 bags and re evaluate We will start patient on Flagyl IV Q 8H We will start on Protonix 40 mg IV daily for GI prophylaxis We will replace electrolytes as needed per protocol We will start on insulin sliding scale AC & HS with hypoglycemia protocol We will add prn medication for fever,pain,cough , nausea and vomiting We will reconcile home meds once medlist available We will request fecal occult blood x1 and GI stool panel We will request labs in am Further orders to follow depending on above results Case discussed with attending physician and came up with above treatment and plan of care. ADVANCED CARE PLANNING 1. Which of the following were discussed? Hospice Care - No Therapeutic options - Yes Advance Directives - No Other discussions - 2. Discussed with who? Patient 3. Voluntary nature of this service was explained to the patient? Yes 4. Amount of time spent - ____24___ 5. Reviewed by Physician? (if this service was performed by NPP) Yes Patient seen and examined by me. Agree with note by AUTOMOTIVE LEASING SALES REPRESENTATIVE SEE ADDITIONAL ORDERS PER CHART DISCUSSED WITH NURSING STAFF BARNEY CELESTIN DAIRY PROCESSING EQUIPMENT OPERATOR Oct 07, 2024 18:55
--- NOTE | 2024-10-07 19:30 | NUR ---
PT CARE ASSUMED AT THIS TIME
[2024-10-07] MEDS: 0.9% NACL 500ML IV.SOLN 500 ML IV ONE (20:03)
[2024-10-07] MEDS ORDERED: PoTASSium chl 10% ELIXIR 20MEQ 20 MEQ/15 ML UDCUP PO PRN (21:00)
[2024-10-07] MEDS ORDERED: MAGNESIUM 2GM PREMIX 50ML 50 ML IV PRN (21:00)
[2024-10-07] MEDS ORDERED: PoTASSium chloRIDE 20MEQ/100ML 100 ML IV PRN (21:00)
[2024-10-07] MEDS ORDERED: DEXTROSE 50%-WATER 50 ML DISP.SYRIN IV PRN (21:00)
[2024-10-07] MEDS ORDERED: GLUCAGON 1MG KIT 1 MG ML IM PRN (21:00)
[2024-10-07] MEDS: 0.9%NACL 1000ML 1,000 ML IV SCH ×2 (21:00→21:42)
[2024-10-07] MEDS: metRONIDazole 500MG/100ML BAG 100 ML IV SCH (21:44)
[2024-10-07] MEDS: INSULIN humuLIN R 100 UNIT/ML 3ML SQ SCH (22:01)
[2024-10-08] VITALS (8 sets, daily range): BP systolic 127–166; BP diastolic 83–103; PULSE 87–95; RESP 17–22; TEMP 97.8–98.4; O2SAT 100
--- NOTE | 2024-10-08 06:21 | NUR ---
PROVIDER PAGED AT THIS TIME REGAURDING BP MEDICATION. PENDING CALL BACK.
--- NOTE | 2024-10-08 07:00 | NUR ---
SPOKE TO PROVIDER LOUIS HENDERSON AT THIS TIME ABOUT BP MEDICATION. PER PROVIDER MEDICATION WILL BE ORDERED.
--- NOTE | 2024-10-08 07:24 | NUR ---
REPORT GIVEN TO CASA DRISCOLL AT THIS TIME
[2024-10-08] MEDS: PANTOPrazole 40 MG/VIAL IVP SCH (07:36)
[2024-10-08] MEDS: amLODIPine 5 MG TAB PO ONE (07:36)
--- NOTE | 2024-10-08 09:38 | NUR ---
DCP: home Pt currently lives with his girlfriend Ntai Mendez [phone]. 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 Pt denies any DME, home health, or provider services. Pt states that he used to go to [facility] for medical care however has not been there "in a while". SW provided pt with community resources for him to access. Pt would want to DC home Addendum: 10/08/24 at 0941 by LU HATCH SS Amended: Links added.
[2024-10-08 10:04] LABS: BASOPHILS # (AUTO) 0.04 K/uL (0.00-0.20); BASOPHILS % (AUTO) 0.6 % (0.0-5.0); EOSINOPHILS # (AUTO) 0.07 K/uL (0.00-0.70); EOSINOPHILS % (AUTO) 1.1 % (0.0-8.0); IMMATURE GRANULOCYTE ABSOLUTE 0.01 K/uL (0-1); LYMPHOCYTES # (AUTO) 1.8 K/uL (1.0-4.8); MEAN CORPUSCULAR HEMOGLOBIN 29.1 pg (27.0-33.0); MEAN CORPUSCULAR HGB CONC 33.6 g/dL (32.0-36.0); MEAN CORPUSCULAR VOLUME 86.4 fL (79-99); MONOCYTES # (AUTO) 0.5 K/uL (0.1-1.0); NEUTROPHILS # (AUTO) 4.2 K/uL (1.8-7.7); NEUTROPHILS % (AUTO) 64.1 % (40.0-77.0); PLATELET COUNT (AUTO) 216 K/uL (130-400); RED BLOOD CELL COUNT(AUTO) 3.82 MIL/uL (4.50-6.20); RED CELL DISTRIBUTION WIDTH 12.7 % (11.0-15.5); WHITE BLOOD COUNT (AUTO) 6.5 K/uL (4.8-10.8)
[2024-10-08 10:15] LABS: HEMOGLOBIN A1C 12.2 % (4.0-6.0)
[2024-10-08 10:34] LABS: ALBUMIN 3.6 g/dL (3.5-5.0); BILIRUBIN,TOTAL 0.4 mg/dL (0.2-1.0); CREATININE 0.7 mg/dL (0.5-1.3); MAGNESIUM 1.5 mg/dL (1.80-2.40); POTASSIUM 3.9 mmol/L (3.5-5.1); THYROID STIMULATING HORMONE 0.01 uIU/mL (0.36-3.74); TOTAL PROTEIN, SERUM 7.1 g/dL (6.0-8.3)
--- NOTE | 2024-10-08 12:00 | NUR ---
patient alert and oriented x4, vitals stable on room air, ambulatory, steady, denies weakness/pain, IV patent to RAC infusing NS per order.
--- NOTE | 2024-10-08 13:08 | NUR ---
gave report to RAMBO Aldana on 4th floor
[2024-10-08] MEDS ORDERED: METF-446 PO (13:15)
--- NOTE | 2024-10-08 14:28 | PN ---
[facility] PROGRESS NOTE Date of Service: Oct 08, 2024 Time of Service: 14:20 SUBJECTIVE: [This is a 49-year-old male admitted with complaints of dizziness and headaches, nonbloody diarrhea. On admission, patient was noted with elevated blood sugar ranging in the high 200s. This morning, A1c was collected which came back elevated at 12.2%. Magnesium 1.5. THS extremely low, we will order Free t3, t4. Consulting endocrinology. REVIEW OF SYSTEMS CONSTITUTIONAL: Denies fevers, chills, or night sweats. No unintentional weight loss reported. NEUROLOGICAL: Complain of headache and dizziness Denies amaurosis fugax, motor weakness, sensory deficit, gait abnormalities, or tremors. ENT: No hearing loss, otalgia, otorrhea, rhinitis, rhinorrhea, hoarseness, or sore throat. CARDIOVASCULAR: Denies any exertional angina, dyspnea on exertion, orthopnea, paroxysmal nocturnal dyspnea, palpitations, life-threatening arrhythmias, claudication. PULMONARY: Denies any shortness of breath, cough, phlegm/sputum, hemoptysis, pleuritic chest pain. SLEEP: Denies morning headaches, daytime somnolence or napping. Denies difficulty falling asleep, staying asleep, waking from sleep. Denies knowledge of snoring. GASTROINTESTINAL: Complained of diarrhea Denies any type of dysphagia to either liquids or solids. Denies nausea, vomiting, pyrosis, early satiety, abdominal pain, diarrhea, constipation, or changes in stool consistency or caliber. Denies coffee-ground emesis, hematemesis, hematochezia, or melanotic stools. GENITOURINARY: Denies frequency, urgency, nocturia, hematuria or incontinence (Storage/Irritative symptoms.) Low urinary stream, straining to void, urinary intermittency or hesitancy, splitting of the voiding stream, terminal dribbling. ENDOCRINOLOGIC: Denies polyuria, polydipsia, polyphagia or heat/cold intolerances. HEMATOLOGIC: Denies thrombophilia/previous clots, or coagulopathy/bleeding disorders. ONCOLOGIC: Denies personal history of malignancy. DERMATOLOGIC: Denies rashes or pruritus. PSYCHIATRIC: Denies any suicidal or homicidal ideation. Denies hallucinations. PHYSICAL EXAM GENERAL APPEARANCE: The patient is awake, alert, and oriented, in no acute cardiopulmonary distress. NEUROLOGICAL: Cranial nerves II-XII grossly intact. Motor is 5/5 in bilateral upper and lower extremities proximal to distal. No sensory deficits. HEENT: Face is symmetric. Pupils are equal and reactive. Extraocular movements are intact. NECK: Supple. No JVD. No thyromegaly. No submental, submandibular, pre- /postauricular, occipital or supraclavicular lymphadenopathy. CHEST: Normal chest expansion. No Telemetry. LUNGS: Absence of any rales, rhonchi or any wheezing. CARDIOVASCULAR: Regular. S1 and S2 normal. No appreciable rubs, murmurs or gallops. ABDOMEN: Soft, nontender, and nondistended. There is no rebound, voluntary guarding, or rigidity. : Deferred. No Stinson. EXTREMITIES: Non-edematous and not cyanotic. No clubbing. Good capillary refill. SKIN: No skin breakdown. Vital Signs (last 8hr) Date Time Temp Pulse Resp B/P (MAP) Pulse Ox O2 Delivery O2 Flow Rate FiO2 10/08/24 12:30 93 17 127/90 10/08/24 11:00 98.1 92 18 162/96 100 10/08/24 09:38 98.1 10/08/24 08:15 87 155/88 99 10/08/24 06:57 88 21 179/107 100 Room Air* 0 21 LABS: Laboratory: Test 10/08/24 11:53 10/08/24 09:51 10/07/24 16:10 10/07/24 14:10 Range/Units Whole Blood Glucose 219 H 70-110 MG/DL White Blood Count 6.5 4.8-10.8 K/uL Red Blood Count 3.82 L 4.50-6.20 MIL/uL Hemoglobin 11.1 L 14.0-18.0 g/dL Hematocrit 33.0 L 42-54 % Mean Corpuscular Volume 86.4 79-99 fL Mean Corpuscular Hemoglobin 29.1 27.0-33.0 pg Mean Corpuscular Hemoglobin Concent 33.6 32.0-36.0 g/dL Red Cell Distribution Width 12.7 11.0-15.5 % Platelet Count 216 130-400 K/uL Mean Platelet Volume 11.0 H 7.5-10.5 fL Immature Granulocyte % (Auto) 0.2 0-1 % Neutrophils (%) (Auto) 64.1 40.0-77.0 % Lymphocytes (%) (Auto) 27.0 21.0-51.0 % Monocytes (%) (Auto) 7.0 3.0-13.0 % Eosinophils (%) (Auto) 1.1 0.0-8.0 % Basophils (%) (Auto) 0.6 0.0-5.0 % Neutrophils # (Auto) 4.2 1.8-7.7 K/uL Lymphocytes # (Auto) 1.8 1.0-4.8 K/uL Monocytes # (Auto) 0.5 0.1-1.0 K/uL Eosinophils # (Auto) 0.07 0.00-0.70 K/uL Basophils # (Auto) 0.04 0.00-0.20 K/uL Absolute Immature Granulocyte (auto 0.01 0-1 K/uL Nucleated Red Blood Cells 0.0 0.0-0.19 % Sodium Level 136 136-145 mmol/L Potassium Level 3.9 3.5-5.1 mmol/L Chloride Level 101 101-111 mmol/L Carbon Dioxide Level 31 21-32 mmol/L Blood Urea Nitrogen 13 7-18 mg/dL Creatinine 0.7 0.5-1.3 mg/dL Glomerular Filtration Rate Calc 114 >90 mL/min Random Glucose 195 H 70-105 mg/dL Hemoglobin A1c 12.2 H 4.0-6.0 % Estimated Average Glucose (eAG) 303 H 70-126 mg/dL Total Calcium 8.9 8.5-10.1 mg/dL Magnesium Level 1.50 L 1.80-2.40 mg/dL Total Bilirubin 0.4 # 0.2-1.0 mg/dL Aspartate Amino Transf (AST/SGOT) 14 10-37 U/L Alanine Aminotransferase (ALT/SGPT) 18 12-78 U/L Alkaline Phosphatase 76 # 50-136 U/L Total Creatine Kinase 50 21-232 U/L Total Protein 7.1 6.0-8.3 g/dL Albumin 3.6 3.5-5.0 g/dL Triglycerides Level 131 30-200 mg/dL Cholesterol Level 155 <200 mg/dL LDL Cholesterol 85 0-99 mg/dL HDL Cholesterol 55 29-71 mg/dL Thyroid Stimulating Hormone (TSH) 0.01 L 0.36-3.74 uIU/mL Urine Color LIGHT-YELLOW YELLOW Urine Appearance CLEAR CLEAR Urine pH 5.5 5.0-8.0 Urine Specific Caspian 1.024 1.001-1.031 Urine Protein 10 H NEGATIVE mg/dL Urine Glucose (UA) >=1000 H NEGATIVE mg/dL Urine Ketones NEGATIVE NEGATIVE mg/dL Urine Occult Blood +- (TRACE) H NEGATIVE Urine Nitrate NEGATIVE NEGATIVE Urine Bilirubin NEGATIVE NEGATIVE mg/dL Urine Urobilinogen 0.2 0.2-1.0 mg/dL Urine Leukocyte Esterase NEGATIVE NEGATIVE Romi/uL Urine RBC 0-1 0-1 /HPF Urine WBC 0-1 0-1 /HPF Urine Squamous Epithelial Cells RARE 0-2 /HPF Urine Bacteria RARE None Seen /HPF Urine Opiates Screen NEGATIVE NEGATIVE Urine Barbiturates Screen NEGATIVE NEGATIVE Urine Phencyclidine Screen NEGATIVE NEGATIVE Urine Amphetamines Screen NEGATIVE NEGATIVE Urine Benzodiazepines Screen NEGATIVE NEGATIVE Urine Cocaine Screen NEGATIVE NEGATIVE Urine Marijuana (THC) Screen NEGATIVE NEGATIVE Direct Bilirubin 0.1 0.0-0.3 mg/dL Lipase 58 16-77 U/L Current Medications Medications (Trade) Dose Ordered Sig/Anjana Route PRN Reason Start Time Stop Time Status Last Admin Dose Admin Amlodipine Besylate (NorvASC 5MG TAB) 5 mg DAILY PO 10/09/24 09:00 11/08/24 08:59 Dextrose (D50w) 50 ml AD PRN IV HYPOGLYCEMIA PROTOCOL 10/07/24 21:00 11/06/24 20:59 Glucagon (Glucagon 1mg Kit) 1 mg AD PRN IM HYPOGLYCEMIA PROTOCOL 10/07/24 21:00 11/06/24 20:59 Insulin Human Regular (humuLIN R 100 UNIT/ML 3ML) INSULIN SLIDING SCAL... ACHS SQ 10/07/24 21:00 11/06/24 20:59 10/08/24 12:20 3 UNIT Magnesium Sulfate 50 ml @ 0 mls/hr PROTOCOL PRN IV OTHER [SEE ORDER COMMENTS] 10/07/24 21:00 11/06/24 20:59 Metronidazole/ Sodium Chloride 100 ml @ 100 mls/hr Q8H IV 10/07/24 21:00 10/17/24 20:59 10/08/24 12:22 100 MLS/HR Pantoprazole Sodium (PROTonix 40MG INJ) 40 mg DAILY IVP 10/08/24 09:00 11/07/24 08:59 10/08/24 07:36 40 MG Potassium Chloride 100 ml @ 100 mls/hr AD PRN IV POTASSIUM PROTOCOL 10/07/24 21:00 11/06/24 20:59 Potassium Chloride (K-Dur/Klor-Con 20meq) 20 meq AD PRN PO POTASSIUM PROTOCOL 10/07/24 21:00 11/06/24 20:59 Potassium Chloride (KCl 10% Elixir 20meq/15ml) 20 meq AD PRN PO POTASSIUM PROTOCOL 10/07/24 21:00 11/06/24 20:59 Sodium Polystyrene Sulfonate (kayEXALate 15 GM/60 ML) 30 gm ONCE PO 10/07/24 17:00 10/08/24 11:09 DC 10/07/24 17:28 30 GM Sodium Chloride 1,000 ml @ 125 mls/hr Q8H IV 10/07/24 20:00 10/08/24 11:09 DC 10/08/24 04:31 125 MLS/HR Sodium Chloride 1,000 ml @ 125 mls/hr Q8H IV 10/07/24 21:00 11/06/24 20:59 10/08/24 12:28 125 MLS/HR DIAGNOSTICS / RADIOLOGY: [ ] ASSESSMENT: Rule out hyperthyroidism, POA Extremely low TSH level, POA Dehydration POA Hyperkalemia POA Normocytic normochromic anemia POA Uncontrolled diabetes POA Hypertension POA Diarrhea POA Medical noncompliance POA Hypomagnesemia, POA PLAN: May discontinue telemetry Continue consistent carb diet Continue with NS at 100 mL/hour We will order A1c, free T3 and T4 Continue with Flagyl IV Q 8H Continue Protonix 40 mg IV daily for GI prophylaxis We will replace electrolytes as needed per protocol Patient will have magnesium sulfate2 g IV x1 Continue insulin sliding scale AC & HS with hypoglycemia protocol We will add prn medication for fever,pain,cough , nausea and vomiting We will reconcile home meds once medlist available We will request fecal occult blood x1 and GI stool panel We will request labs in am Further orders to follow depending on above results Case discussed with attending physician and came up with above treatment and plan of care. ATTESTATION BY PHYSICIAN I have seen and examined the patient. I reviewed the documentation, medical decision making, and treatment plan as noted by the mid-level provider above. I agree with the findings and plan of care. Raafela Gay MD, [facility] Oct 08, 2024 14:27
[2024-10-08] MEDS ORDERED: MAGNESIUM 2GM PREMIX 50ML 50 ML IV SCH (14:30)
--- NOTE | 2024-10-08 16:36 | CONS ---
CONSULT NOTE: endocrinology consult chief complaint: dizziness and headache reason for consult:uncontrolled dm-2 Date of Service: Oct 08, 2024 HISTORY OF PRESENT ILLNESS: This is a 49-year-old Nepali-speaking male past medical history of diabetes , hypertension hyperlipidemia and medical noncompliance who presents to the ED for complaints of dizziness and headache which started five days ago and symptoms had been tolerable however last he started having non bloody diarrhea x6 episodes. patient states dizziness and headache has become more worse so he decided to come tot he ED for evaluation.Patient states he does not have a PCP and only meds he took is metformin 1000mg bid patient is awake,alert and coherent. Latest vital signs temperature 98.2, heart rate 100, blood pressure 128/88 saturation 100% on room air. Labs hemoglobin 11, hematocrit 34, platelet count 216. Sodium 133, potassium 5.4 to 4 , chloride 98, BUN 21, creatinine 1.1 GFR 83 blood sugar 264. Urine toxicology negative. Urinalysis significant with protein, glucose and trace occult blood. CT head result revealed normal. While in the ER patient received 1.5 L NS bolus, Reglan 10 mg IV, Benadryl 25 mg IV, Toradol 15 mg IV, D50 50 mL IV, insulin 5 units IV, Kayexalate 30 g p.o., Lasix 40 mg p.o., calcium gluconate IV, DuoNeb. he has dm-2 for many years and use metformin 500 mg bid but non-compliant. glucose at home runs greater than 300 mg.dl. hba1c 12.2% reports palpitations, heat intolerance and more than 15 lbs weight loss. TSH <0.01 and t 4 free 1.13 denies goiter or exophthalmos. my suspicion is high for graves disease. REVIEW OF SYSTEMS CONSTITUTIONAL: Denies fevers, chills, or night sweats. No unintentional weight loss reported. NEUROLOGICAL: Complain of headache and dizziness Denies amaurosis fugax, motor weakness, sensory deficit, gait abnormalities, or tremors. ENT: No hearing loss, otalgia, otorrhea, rhinitis, rhinorrhea, hoarseness, or sore throat. CARDIOVASCULAR: Denies any exertional angina, dyspnea on exertion, orthopnea, paroxysmal nocturnal dyspnea, palpitations, life-threatening arrhythmias, claudication. PULMONARY: Denies any shortness of breath, cough, phlegm/sputum, hemoptysis, pleuritic chest pain. SLEEP: Denies morning headaches, daytime somnolence or napping. Denies difficulty falling asleep, staying asleep, waking from sleep. Denies knowledge of snoring. GASTROINTESTINAL: Complained of diarrhea Denies any type of dysphagia to either liquids or solids. Denies nausea, vomiting, pyrosis, early satiety, abdominal pain, diarrhea, constipation, or changes in stool consistency or caliber. Denies coffee-ground emesis, hematemesis, hematochezia, or melanotic stools. GENITOURINARY: Denies frequency, urgency, nocturia, hematuria or incontinence (Storage/Irritative symptoms.) Low urinary stream, straining to void, urinary intermittency or hesitancy, splitting of the voiding stream, terminal dribbling. ENDOCRINOLOGIC: Denies polyuria, polydipsia, polyphagia or heat/cold intolerances. HEMATOLOGIC: Denies thrombophilia/previous clots, or coagulopathy/bleeding disorders. ONCOLOGIC: Denies personal history of malignancy. DERMATOLOGIC: Denies rashes or pruritus. PSYCHIATRIC: Denies any suicidal or homicidal ideation. Denies hallucinations. PAST MEDICAL HISTORY: [Medical noncompliance, Diabetes, hypertension and hyperlipidemia ] PAST SURGICAL HISTORY: [ Patient denies] PAST SOCIAL HISTORY: [ Patient lives with girlfriend. Patient denies alcohol tobacco and recreational drug use ] FAMILY HISTORY: [ Noncontributory ] Coded Allergies: No Known Drug Allergies (Verified Allergy, 11/29/11) PHYSICAL EXAM GENERAL APPEARANCE: The patient is awake, alert, and oriented, in no acute cardiopulmonary distress. NEUROLOGICAL: Cranial nerves II-XII grossly intact. Motor is 5/5 in bilateral upper and lower extremities proximal to distal. No sensory deficits. HEENT: Face is symmetric. Pupils are equal and reactive. Extraocular movements are intact. NECK: Supple. No JVD. No thyromegaly. No submental, submandibular, pre-/postauricular, occipital or supraclavicular lymphadenopathy. CHEST: Normal chest expansion. No Telemetry. LUNGS: Absence of any rales, rhonchi or any wheezing. CARDIOVASCULAR: Regular. S1 and S2 normal. No appreciable rubs, murmurs or gallops. ABDOMEN: Soft, nontender, and nondistended. There is no rebound, voluntary guarding, or rigidity. : Deferred. No Stinson. EXTREMITIES: Non-edematous and not cyanotic. No clubbing. Good capillary refill. SKIN: No skin breakdown. ASSESSMENT: he has dm-2 for many years and use metformin 500 mg bid but non-compliant. glucose at home runs greater than 300 mg.dl. hba1c 12.2% thyrotoxicosis reports palpitations, heat intolerance and more than 15 lbs weight loss. TSH <0.01 and t 4 free 1.13 denies goiter or exophthalmos. my suspicion is high for graves disease. Dehydration POA improving Hyperkalemia POA improving Normocytic normochromic anemia POA Hypertension POA Diarrhea POA Medical noncompliance POA PLAN: start lantus 10 units daily increase low dose ssi to medium dose ssi i will start premeal insulin if persistent hyperglycemia start methimazole 5 mg daily TSI ordered. thyroid u/s ordered monitor glucose qx6 hourly patient wwill need novolin 70/30 insulin 20 units and 10 units pm thanks for allowing me to participate in patient care and will continue to follow up. Vital Signs 10/08/24 10/08/24 06:57 15:53 Temp 97.9 Pulse 92 Resp 18 B/P (MAP) 150/101 Pulse Ox 100 O2 Delivery Room Air O2 Flow Rate 0 FiO2 21 Hematology Labs: Test 10/08/24 09:51 Range/Units White Blood Count 6.5 4.8-10.8 K/uL Red Blood Count 3.82 L 4.50-6.20 MIL/uL Hemoglobin 11.1 L 14.0-18.0 g/dL Hematocrit 33.0 L 42-54 % Mean Corpuscular Volume 86.4 79-99 fL Mean Corpuscular Hemoglobin 29.1 27.0-33.0 pg Mean Corpuscular Hemoglobin Concent 33.6 32.0-36.0 g/dL Red Cell Distribution Width 12.7 11.0-15.5 % Platelet Count 216 130-400 K/uL Mean Platelet Volume 11.0 H 7.5-10.5 fL Immature Granulocyte % (Auto) 0.2 0-1 % Neutrophils (%) (Auto) 64.1 40.0-77.0 % Lymphocytes (%) (Auto) 27.0 21.0-51.0 % Monocytes (%) (Auto) 7.0 3.0-13.0 % Eosinophils (%) (Auto) 1.1 0.0-8.0 % Basophils (%) (Auto) 0.6 0.0-5.0 % Neutrophils # (Auto) 4.2 1.8-7.7 K/uL Lymphocytes # (Auto) 1.8 1.0-4.8 K/uL Monocytes # (Auto) 0.5 0.1-1.0 K/uL Eosinophils # (Auto) 0.07 0.00-0.70 K/uL Basophils # (Auto) 0.04 0.00-0.20 K/uL Absolute Immature Granulocyte (auto 0.01 0-1 K/uL Nucleated Red Blood Cells 0.0 0.0-0.19 % Chemistry Labs: Test 10/08/24 15:21 10/08/24 09:51 10/07/24 14:10 Range/Units Whole Blood Glucose 175 H 70-110 MG/DL Sodium Level 136 136-145 mmol/L Potassium Level 3.9 3.5-5.1 mmol/L Chloride Level 101 101-111 mmol/L Carbon Dioxide Level 31 21-32 mmol/L Blood Urea Nitrogen 13 7-18 mg/dL Creatinine 0.7 0.5-1.3 mg/dL Glomerular Filtration Rate Calc 114 >90 mL/min Random Glucose 195 H 70-105 mg/dL Hemoglobin A1c 12.2 H 4.0-6.0 % Estimated Average Glucose (eAG) 303 H 70-126 mg/dL Total Calcium 8.9 8.5-10.1 mg/dL Magnesium Level 1.50 L 1.80-2.40 mg/dL Total Bilirubin 0.4 # 0.2-1.0 mg/dL Aspartate Amino Transf (AST/SGOT) 14 10-37 U/L Alanine Aminotransferase (ALT/SGPT) 18 12-78 U/L Alkaline Phosphatase 76 # 50-136 U/L Total Creatine Kinase 50 21-232 U/L Total Protein 7.1 6.0-8.3 g/dL Albumin 3.6 3.5-5.0 g/dL Triglycerides Level 131 30-200 mg/dL Cholesterol Level 155 <200 mg/dL LDL Cholesterol 85 0-99 mg/dL HDL Cholesterol 55 29-71 mg/dL Thyroid Stimulating Hormone (TSH) 0.01 L 0.36-3.74 uIU/mL Free Thyroxine (T4) Direct 1.13 0.76-1.46 ng/dL Free Triiodothyronine (T3) pg/mL 2.42 2.18-3.98 pg/mL Direct Bilirubin 0.1 0.0-0.3 mg/dL Lipase 58 16-77 U/L Current Medications Medications (Trade) Dose Ordered Sig/Anjana Route Start Time Stop Time Status Last Admin Dose Admin Amlodipine Besylate (NorvASC 5MG TAB) 5 mg DAILY PO 10/09/24 09:00 11/08/24 08:59 Insulin Human Regular (humuLIN R 100 UNIT/ML 3ML) INSULIN SLIDING SCAL... ACHS SQ 10/07/24 21:00 11/06/24 20:59 10/08/24 12:20 3 UNIT Magnesium Sulfate 50 ml @ 0 mls/hr PROTOCOL IV 10/08/24 14:30 11/07/24 14:29 Metronidazole/ Sodium Chloride 100 ml @ 100 mls/hr Q8H IV 10/07/24 21:00 10/17/24 20:59 10/08/24 12:22 100 MLS/HR Pantoprazole Sodium (PROTonix 40MG INJ) 40 mg DAILY IVP 10/08/24 09:00 11/07/24 08:59 10/08/24 07:36 40 MG Sodium Polystyrene Sulfonate (kayEXALate 15 GM/60 ML) 30 gm ONCE PO 10/07/24 17:00 10/08/24 11:09 DC 10/07/24 17:28 30 GM Sodium Chloride 1,000 ml @ 125 mls/hr Q8H IV 10/07/24 20:00 10/08/24 11:09 DC 10/08/24 04:31 125 MLS/HR Sodium Chloride 1,000 ml @ 125 mls/hr Q8H IV 10/07/24 21:00 11/06/24 20:59 10/08/24 12:28 125 MLS/HR KATY BISHOP MD Oct 08, 2024 16:36
--- NOTE | 2024-10-08 17:00 | NUR ---
[facility] NPNOTIFIED OF PATIENTS ELEVATED BP.NEW ORDERS RECEIVED.
[2024-10-08] MEDS: LISINOPRIL 5 MG TABLET PO ONE (17:54)
[2024-10-08] MEDS: INSULIN humuLIN R 100 UNIT/ML 3ML SQ SCH (21:01)
[2024-10-09] VITALS (7 sets, daily range): BP systolic 116–147; BP diastolic 82–98; PULSE 89–98; RESP 19–22; TEMP 97.4–98.4; O2SAT 100
[2024-10-09 05:41] LABS: HEMATOCRIT 32.3 % (42-54); MEAN CORPUSCULAR HEMOGLOBIN 28.9 pg (27.0-33.0); MEAN CORPUSCULAR HGB CONC 34.1 g/dL (32.0-36.0); RED BLOOD CELL COUNT(AUTO) 3.8 MIL/uL (4.50-6.20); RED CELL DISTRIBUTION WIDTH 12.6 % (11.0-15.5); WHITE BLOOD COUNT (AUTO) 8.1 K/uL (4.8-10.8)
[2024-10-09 05:50] LABS: CREATININE 0.8 mg/dL (0.5-1.3); MAGNESIUM 1.5 mg/dL (1.80-2.40); POTASSIUM 3.6 mmol/L (3.5-5.1)
[2024-10-09] MEDS: INSULIN humuLIN R 100 UNIT/ML 3ML SQ SCH (06:59)
[2024-10-09] MEDS: PoTASSium chloRIDE 20MEQ ER 20 MEQ ERTAB PO PRN (10:12)
[2024-10-09] MEDS: methIMAZOLE 10 MG TAB PO SCH (10:14)
[2024-10-09] MEDS: amLODIPine 5 MG TAB PO SCH (10:14)
--- NOTE | 2024-10-09 10:19 | HMCIMG ---
THYROID ULTRASOUND History: Thyrotoxicosis Comparison: None Findings: The examination shows normal thyroid lobes except for simple cyst right mid thyroid pole 4 mm. No thyroid masses are seen. There are no nodules. Vascularity is unremarkable. No fluid collections are seen. IMPRESSION: No worrisome lesions. No ultrasound evidence of thyrotoxicosis.
[2024-10-09] MEDS: INSULIN GLARgine 100 UNITS/ML 10 ML VIAL SQ SCH (10:44)
[2024-10-09] MEDS: mecliZINE HCL 25 MG TABLET PO PRN (21:55)
[2024-10-09] MEDS: DiphenhydrAMINE HCL 25 MG CAPSULE PO STA (22:46)
[2024-10-10] VITALS: BP 131/87; PULSE 72; RESP 19; TEMP 98.1
[2024-10-10 04:00] VITALS: BP 134/88; PULSE 84; RESP 20; TEMP 98
[2024-10-10] MEDS: INSULIN humuLIN R 100 UNIT/ML 3ML SQ SCH (07:03)
[2024-10-10 07:57] VITALS: BP 138/90; PULSE 87; RESP 18; TEMP 98
[2024-10-10 08:00] VITALS: O2SAT 99
[2024-10-10 11:39] VITALS: BP 157/95; PULSE 91; RESP 20; TEMP 97.9
[2024-10-10] MEDS ORDERED: INSU100I35 SQ (11:41)
[2024-10-10] MEDS ORDERED: MECL-302 PO (11:41)
[2024-10-10] MEDS ORDERED: METH-387 PO (11:41)
--- NOTE | 2024-10-10 11:49 | PN ---
endocrinology progress note Date of Service: Oct 10, 2024 subjective: he has dm-2 for many years and use metformin 500 mg bid but non-compliant. glucose are improving now.. hba1c 12.2% reports palpitations, heat intolerance and more than 15 lbs weight loss. TSH <0.01 and t 4 free 1.13 denies goiter or exophthalmos. my suspicion is high for graves disease. THYROID ULTRASOUND History: Thyrotoxicosis Comparison: None Findings: The examination shows normal thyroid lobes except for simple cyst right mid thyroid pole 4 mm. No thyroid masses are seen. There are no nodules. Vascularity is unremarkable. No fluid collections are seen. IMPRESSION: No worrisome lesions. No ultrasound evidence of thyrotoxicosis. REVIEW OF SYSTEMS CONSTITUTIONAL: Denies fevers, chills, or night sweats. No unintentional weight loss reported. NEUROLOGICAL: Complain of headache and dizziness Denies amaurosis fugax, motor weakness, sensory deficit, gait abnormalities, or tremors. ENT: No hearing loss, otalgia, otorrhea, rhinitis, rhinorrhea, hoarseness, or sore throat. CARDIOVASCULAR: Denies any exertional angina, dyspnea on exertion, orthopnea, paroxysmal nocturnal dyspnea, palpitations, life-threatening arrhythmias, claudication. PULMONARY: Denies any shortness of breath, cough, phlegm/sputum, hemoptysis, pleuritic chest pain. SLEEP: Denies morning headaches, daytime somnolence or napping. Denies difficulty falling asleep, staying asleep, waking from sleep. Denies knowledge of snoring. GASTROINTESTINAL: Denies any type of dysphagia to either liquids or solids. Denies nausea, vomiting, pyrosis, early satiety, abdominal pain, diarrhea, constipation, or changes in stool consistency or caliber. Denies coffee-ground emesis, hematemesis, hematochezia, or melanotic stools. GENITOURINARY: Denies frequency, urgency, nocturia, hematuria or incontinence (Storage/Irritative symptoms.) Low urinary stream, straining to void, urinary intermittency or hesitancy, splitting of the voiding stream, terminal dribbling. ENDOCRINOLOGIC: Denies polyuria, polydipsia, polyphagia or heat/cold intolerances. HEMATOLOGIC: Denies thrombophilia/previous clots, or coagulopathy/bleeding disorders. ONCOLOGIC: Denies personal history of malignancy. DERMATOLOGIC: Denies rashes or pruritus. PSYCHIATRIC: Denies any suicidal or homicidal ideation. Denies hallucinations. PAST MEDICAL HISTORY: [Medical noncompliance, Diabetes, hypertension and hyperlipidemia ] PAST SURGICAL HISTORY: [ Patient denies] PAST SOCIAL HISTORY: [ Patient lives with girlfriend. Patient denies alcohol tobacco and recreational drug use ] FAMILY HISTORY: [ Noncontributory ] Coded Allergies: No Known Drug Allergies (Verified Allergy, 11/29/11) ASSESSMENT: he has dm-2 for many years and use metformin 500 mg bid but non-compliant. glucose are improving. hba1c 12.2% thyrotoxicosis reports palpitations, heat intolerance and more than 15 lbs weight loss. TSH <0.01 and t 4 free 1.13 denies goiter or exophthalmos. my suspicion is high for graves disease. thyroid u/s is normal. Dehydration POA improving Hyperkalemia POA improving Normocytic normochromic anemia POA Hypertension POA Diarrhea POA Medical noncompliance POA PLAN: continue lantus 10 units daily continue medium dose ssi continue premeal regular insulin 3 units tid before emals. continue methimazole 5 mg daily follow on TSI monitor glucose qx6 hourly patient will need novolin 70/30 insulin 20 units and 10 units pm, methimazole 5 mg daily at discharge. Vitals/Labs Vital Signs Date Time Temp Pulse Resp B/P (MAP) Pulse Ox O2 Delivery O2 Flow Rate FiO2 10/10/24 11:39 97.9 91 20 157/95 99 Room Air 10/09/24 20:00 0 21 Medications Current Medications Sodium Chloride 1,000 ml @ 0 mls/hr ONCE ONCE IV Last administered on 10/07/24at 16:48; Start 10/07/24 at 14:30; Stop 10/07/24 at 14:31; Status DC Metoclopramide HCl 10 mg ONCE ONCE IVP Last administered on 10/07/24at 16:49; Start 10/07/24 at 15:00; Stop 10/07/24 at 15:24; Status DC Diphenhydramine HCl 25 mg ONCE ONCE IV Last administered on 10/07/24at 16:49; Start 10/07/24 at 15:00; Stop 10/07/24 at 15:23; Status DC Ketorolac Tromethamine 15 mg ONCE ONCE IV Last administered on 10/07/24at 16:49; Start 10/07/24 at 15:00; Stop 10/07/24 at 15:22; Status DC Calcium Gluconate 1 gm/Sodium Chloride 110 ml @ 110 mls/hr ONCE ONCE IV Last administered on 10/07/24at 18:01; Start 10/07/24 at 17:30; Stop 10/07/24 at 18:29; Status DC Dextrose 50 ml ONCE ONCE IV Last administered on 10/07/24at 17:33; Start 10/07/24 at 17:00; Stop 10/07/24 at 17:07; Status DC Insulin Human Regular 5 unit ONCE ONCE IV Last administered on 10/07/24at 17:36; Start 10/07/24 at 17:00; Stop 10/07/24 at 17:01; Status DC Albuterol Sulfate 10 mg ONCE ONCE IH Last administered on 10/07/24at 17:35; Start 10/07/24 at 17:30; Stop 10/07/24 at 17:31; Status DC Sodium Polystyrene Sulfonate 30 gm ONCE PO Last administered on 10/07/24at 17:28; Start 10/07/24 at 17:00; Stop 10/08/24 at 11:09; Status DC Furosemide 40 mg ONCE ONCE PO Last administered on 10/07/24at 17:26; Start 10/07/24 at 17:00; Stop 10/07/24 at 17:01; Status DC Sodium Chloride 500 ml @ 0 mls/hr Q0M ONCE IV Last administered on 10/07/24at 20:03; Start 10/07/24 at 20:00; Stop 10/07/24 at 20:01; Status DC Sodium Chloride 1,000 ml @ 125 mls/hr Q8H IV Last administered on 10/08/24at 04:31; Start 10/07/24 at 20:00; Stop 10/08/24 at 11:09; Status DC Sodium Chloride 1,000 ml @ 125 mls/hr Q8H IV Last administered on 10/08/24at 12:28; Start 10/07/24 at 21:00; Stop 11/06/24 at 20:59 Metronidazole/ Sodium Chloride 100 ml @ 100 mls/hr Q8H IV Last administered on 10/10/24at 04:47; Start 10/07/24 at 21:00; Stop 10/17/24 at 20:59 Insulin Human Regular INSULIN SLIDING SCAL... ACHS SQ Last administered on 10/08/24at 12:20; Start 10/07/24 at 21:00; Stop 10/08/24 at 16:36; Status DC Dextrose 50 ml AD PRN IV; Start 10/07/24 at 21:00; Stop 11/06/24 at 20:59 Glucagon 1 mg AD PRN IM; Start 10/07/24 at 21:00; Stop 11/06/24 at 20:59 Magnesium Sulfate 50 ml @ 0 mls/hr PROTOCOL PRN IV; Start 10/07/24 at 21:00; Stop 10/08/24 at 14:32; Status DC Potassium Chloride 100 ml @ 100 mls/hr AD PRN IV; Start 10/07/24 at 21:00; Stop 11/06/24 at 20:59 Potassium Chloride 20 meq AD PRN PO; Start 10/07/24 at 21:00; Stop 11/06/24 at 20:59 Potassium Chloride 20 meq AD PRN PO Last administered on 10/09/24at 10:12; Start 10/07/24 at 21:00; Stop 11/06/24 at 20:59 Pantoprazole Sodium 40 mg DAILY IVP Last administered on 10/10/24at 09:19; Start 10/08/24 at 09:00; Stop 11/07/24 at 08:59 Amlodipine Besylate 5 mg DAILY PO Last administered on 10/10/24at 09:20; Start 10/09/24 at 09:00; Stop 11/08/24 at 08:59 Amlodipine Besylate 5 mg ONCE ONCE PO Last administered on 10/08/24at 07:36; Start 10/08/24 at 07:00; Stop 10/08/24 at 07:02; Status DC Magnesium Sulfate 50 ml @ 0 mls/hr PROTOCOL IV; Start 10/08/24 at 14:30; Stop 10/10/24 at 11:36; Status DC Insulin Human Regular INSULIN SLIDING SCAL... ACHS SQ Last administered on 10/09/24at 20:33; Start 10/08/24 at 21:00; Stop 11/07/24 at 20:59 Lisinopril 5 mg ONCE ONCE PO Last administered on 10/08/24at 17:54; Start 10/08/24 at 17:00; Stop 10/08/24 at 17:07; Status DC Methimazole 5 mg DAILY PO Last administered on 10/10/24at 09:20; Start 10/09/24 at 09:00; Stop 11/08/24 at 08:59 Insulin Glargine 10 units DAILY SQ Last administered on 10/10/24at 09:26; Start 10/09/24 at 09:00; Stop 11/08/24 at 08:59 Insulin Human Regular 3 unit TIDAC SQ Last administered on 10/10/24at 06:27; Start 10/09/24 at 07:30; Stop 10/10/24 at 06:58; Status DC Meclizine HCl 25 mg QID PRN PO Last administered on 10/09/24at 21:55; Start 10/09/24 at 16:00; Stop 11/08/24 at 15:59 Diphenhydramine HCl 25 mg ONCE STAT PO Last administered on 10/09/24at 22:46; Start 10/09/24 at 22:38; Stop 10/09/24 at 22:43; Status DC Insulin Human Regular 3 unit TIDAC SQ; Start 10/10/24 at 07:30; Stop 11/09/24 at 07:29 Magnesium Sulfate 50 ml @ 0 mls/hr PROTOCOL IV; Start 10/10/24 at 11:30; Stop 11/09/24 at 11:29 KATY BISHOP MD Oct 10, 2024 11:49
[2024-10-10 12:22] LABS: HEMATOCRIT 32.3 % (42-54); MEAN CORPUSCULAR HEMOGLOBIN 29.3 pg (27.0-33.0); MEAN CORPUSCULAR HGB CONC 34.1 g/dL (32.0-36.0); MEAN CORPUSCULAR VOLUME 85.9 fL (79-99); RED BLOOD CELL COUNT(AUTO) 3.76 MIL/uL (4.50-6.20); RED CELL DISTRIBUTION WIDTH 12.7 % (11.0-15.5); WHITE BLOOD COUNT (AUTO) 6.2 K/uL (4.8-10.8)
[2024-10-10 12:33] LABS: CREATININE 0.8 mg/dL (0.5-1.3); MAGNESIUM 1.6 mg/dL (1.80-2.40); POTASSIUM 3.7 mmol/L (3.5-5.1)
[2024-10-10] MEDS: MAGNESIUM 2GM PREMIX 50ML 50 ML IV SCH (13:46)
--- NOTE | 2024-10-10 14:09 | DS ---
Discharge Summary Hospital Course Summary: 49-year-old Thai-speaking male past medical history of diabetes , hypertension hyperlipidemia and medical noncompliance who presents to the ED for complaints of dizziness and headache which started five days ago and symptoms had been tolerable however last night he started having non bloody diarrhea x6 episodes and last diarrhea episode was around 0300 am today and patient states dizziness and headache has become more worse so he decided to come tot he ED for evaluation.Patient states he does not have a PCP and only meds he took is metformin 1000mg bid he said. In the ED, he continues to beawake,alert and coherent. Latest vital signs temperature 98.2, heart rate 100, blood pressure 128/88 saturation 100% on room air. Labs hemoglobin 11, hematocrit 34, platelet count 216. Sodium 133, potassium 5.4 to 4 , chloride 98, BUN 21, creatinine 1.1 GFR 83 blood sugar 264. Urine toxicology negative. Urinalysis significant with protein, glucose and trace occult blood. CT head result revealed normal. While in the ER patient received 1.5 L NS bolus, Reglan 10 mg IV, Benadryl 25 mg IV, Toradol 15 mg IV, D50 50 mL IV, insulin 5 units IV, Kayexalate 30 g p.o., Lasix 40 mg p.o., calcium gluconate IV, DuoNeb. We will admit patient for further medical management. We continued to monitor his blood sugar which was hyperglycemic so A1c done >12%. His TSH level < 0.01, Free t3, t4 WNL. We consulted Dr Bishop for suspected Hyperthyroid, US of thyroid normal though with his symptoms, he is suspecting that he has graves disease. Patient was started with Methamizole 5 mg daily and he recommended to continue on DC, aS far as [facility] DM, Novolin 70/30 rec- 20 units in the am and 10 units in the pm. Patient also was having some dizziness which was relieved by meclizine. At this time, we will dc patient to home as he remained stable. Dr Bishop recommending a follow up in the clinic in 1-2 weeks. Advised patient to follow up with PCP in 2-3 days. Electrical Laboratory Technician(s): Dr Bishop- Fighting Vehicle Systems Maintainer Procedure(s): [facility] [address] [place] [id number] IMAGING REPORT Signed PATIENT: BRYNN BECERRA MR#: [id number] : 1975 SEX: M AGE: 49 LOCATION: 4CH ORDER 04 STATUS: ADM IN REPORT#: [id number] SERVICE 02 REASON: thyrotoxicosis ORDERING PHYSICIAN: KATY BISHOP MD PROCEDURE: THYROID - US THYROID/NECK THYROID ULTRASOUND History: Thyrotoxicosis Comparison: None Findings: The examination shows normal thyroid lobes except for simple cyst right mid thyroid pole 4 mm. No thyroid masses are seen. There are no nodules. Vascularity is unremarkable. No fluid collections are seen. IMPRESSION: No worrisome lesions. No ultrasound evidence of thyrotoxicosis. DICTATED BY: SARANYA BHAGAT MD DATE: 10/09/24 1015 ELECTRONICALLY SIGNED BY: SARANYA BHAGAT MD DATE: 10/09/[address] [address] IMAGING REPORT Signed PATIENT: BRYNN BECERRA MR#: [id number] : 1975 SEX: M AGE: 49 LOCATION: EDH ORDER 57 STATUS: REG ER REPORT#: [id number] SERVICE 56 REASON: Headache ORDERING PHYSICIAN: ROSA INMAN PROCEDURE: HEAD WO - CT HEAD/BRAIN W/O CONTRAST Exam Type: CT HEAD/BRAIN W/O CONTRAST Clinical Information: Headache Comparison: None CT Dose Index (CTDI): 57.33 mGy Dose Length Product (DLP): 956.79 total mGy-cm Findings: The examination is unremarkable. Wood-white matter junction is preserved. No intra or extra axial lesions or fluid collections are seen. Specifically, wood and white matter are normal in signal characteristics with normal caliber of ventricles and periventricular cisterns with no evidence of intra or or extra-axial hemorrhage, lacunar infarct, or major territorial infarct, mass, or other abnormality. There are no infarcts. There are no hemorrhages. Periventricular white matter locations are preserved. The orbital contents and structures of the posterior fossa are intact. Impression: Normal CT of the head. This study was performed using dose reduction techniques to include automated exposure control and/or adjustment of the mA and/or kV according to patient size. DICTATED BY: SARANYA BHAGAT MD DATE: 10/07/241714 ELECTRONICALLY SIGNED BY: SARANYA BHAGAT MD DATE: 10/07/241718 Assessment/Plan: Discharge Diagnoses: Ruled out hyperthyroidism, POA Extremely low TSH level, POA Suspected Graves disease, POA Dehydration POA- resolved Hyperkalemia POA-resolved Normocytic normochromic anemia POA Uncontrolled diabetes POA- dc wigth novolin 70/30- 20 units in am and [address] Bishop rec's to continue with metformin at home Hypertension POA Diarrhea POA Medical noncompliance POA Hypomagnesemia, POA Admitting Diagnoses: Rule out hyperthyroidism, POA Extremely low TSH level, POA Dehydration POA Hyperkalemia POA Normocytic normochromic anemia POA Uncontrolled diabetes POA Hypertension POA Diarrhea POA Medical noncompliance POA Hypomagnesemia, POA Discharge Instructions: Follow up with PCP in 2-3 days Follow up with Dr Bishop in 1 week Home Medications: Reported Medications Metformin HCl (Metformin HCl) 1,000 Mg Tablet, 1 TAB PO BID for 30 Days, #60 TAB 0 Refills 10/08/24 Discontinued Reported Medications [Metformina/Gliben.] 50,0/5 TAB No Conflict Check, 1 PO BIDMEALS 02/13/19 Discontinued Scripts Meclizine HCl (Meclizine HCl) 25 Mg Tablet, 25 MG PO TIDP, #30 TAB Prov:CASSIE VICK 02/12/22 New Medications: Insulin NPH Hum/Reg Insulin Hm (Novolin 70-30 Flexpen) 100 Unit/Ml (70-30) Insuln.pen 100 UNIT SQ BID, #1 VIAL novolin 70/30 -20 units in am and 10 units in Meclizine HCl (Meclizine HCl) 25 Mg Tablet 25 MG PO QID PRN for DIZZINESS, #30 TAB 0 Refills Methimazole (Methimazole) 10 Mg Tablet 5 MG PO DAILY, #30 TAB 0 Refills Continued Medications: Metformin HCl (Metformin HCl) 1,000 Mg Tablet 1 TAB PO BID for 30 Days, #60 TAB 0 Refills Time spent arranging discharge: 31-60 minutes ATTESTATION BY PHYSICIAN I have seen and examined the patient. I reviewed the documentation, medical decision making, and treatment plan as noted by the mid-level provider above. I agree with the findings and plan of care. Rafaela Gay MD, JANICE B [facility] Oct 10, 2024 14:09
[2024-10-10 15:15] VITALS: BP 139/92; PULSE 95; RESP 18; TEMP 98.1
== END 2024-10-10 18:04 | disposition home or self-care (01) | DRG 641 ==
LOC: EDH 14:02 → EDHIP 14:03 → 4CH 10-08 13:40
PROVIDERS: ADMIT Internal Medicine Sleep Medicine; ATTEND Internal Medicine Sleep Medicine
DX: E86.0 Dehydration (principal); E87.5 Hyperkalemia; D64.9 Anemia, unspecified; I10 Essential (primary) hypertension; E83.42 Hypomagnesemia; E78.00 Pure hypercholesterolemia, unspecified; E05.00 Thyrotoxicosis with diffuse goiter without thyrotoxic crisis or storm; E11.65 Type 2 diabetes mellitus with hyperglycemia; Z79.4 Long term (current) use of insulin; Z79.84 Long term (current) use of oral hypoglycemic drugs; Z91.199 Patient's noncompliance with other medical treatment and regimen due to unspecified reason
CPT/HCPCS: 36415; 70450; 76536; 80048; 80053; 80061; 80076; 80305; 81001; 82550; 82948; 83036; 83690; 83735; 84132; 84439; 84443; 84445; 84481; 85025; 85027; 93005; 94640; G0378; J0612; J1200; J1815; J1885; J2470; J2765; J3475; J3490; J7030; J7070; Q0163; A4600

== ENCOUNTER 2025-06-05 17:32 | Emergency (ER) | payer SELFPAY ==
[~2025-06-05] VITALS: Ht 165.1 cm; Wt 64.0 kg
[~2025-06-05 17:32] MED LIST changes: +INSU100I35 SQ; +METF-446 PO; +METH-387 PO; -[UNRECOGNIZED DRUG - MIXTURE] PO
[2025-06-05 17:33] VITALS: BP 105/70; PULSE 91; RESP 20; TEMP 99.1
--- NOTE | 2025-06-05 18:56 | HMCIMG ---
EXAM: CR Chest, 1 View. CLINICAL HISTORY: cough COMPARISON: None provided. FINDINGS: LUNGS: The lungs show no infiltrate or other acute finding. PLEURAL SPACES: No evidence of pleural effusion or pneumothorax. MEDIASTINUM: Cardiac size and mediastinal contours within normal limits. BONES: No aggressive appearing osseous lesion seen. IMPRESSION: No acute cardiopulmonary pathology is evident. /[place]
[2025-06-05 20:07] VITALS: TEMP 99
--- NOTE | 2025-06-05 20:07 | NUR ---
COVID, FLU AND STREP SWABS COLLECTED AND SENT
[2025-06-05 20:21] LABS: RAPID GROUP A STREP negative (NEGATIVE)
[2025-06-05 20:31] LABS: COVID19 (SARS ANTIGEN RAPID) PRESUMPTIVE NEGATIVE (NEGATIVE)
[2025-06-05 20:41] LABS: INFLUENZA TYPE A Negative For Type A (NEGATIVE); INFLUENZA TYPE B Negative For Type B (NEGATIVE)
--- NOTE | 2025-06-05 20:54 | ERN ---
ED Note History of Present Illness Stated Complaint: FEVER Chief Complaint: Fever Time Seen by MD: 17:35 Time Seen by Midlevel: 17:35 Dictation: The patient is a 49-year-old male with a history of diabetes who presents to the emergency department with complaints of sore throat, nonproductive cough, fevers, headache for the last three days. Patient reports that family members a t home have similar symptoms. Allergies: Coded Allergies: No Known Drug Allergies (Verified Allergy, 11/29/11) Home Meds Active Scripts Insulin NPH Hum/Reg Insulin Hm (Novolin 70-30 Flexpen) 100 Unit/Ml (70-30) Insuln.pen, 100 UNIT SQ BID, #1 VIAL novolin 70/30 -20 units in am and 10 units in Prov:LOUIS HENDERSON AGACNP 10/10/24 Methimazole (Methimazole) 10 Mg Tablet, 5 MG PO DAILY, #30 TAB 0 Refills Prov:LOUIS HENDERSON AGACNP 10/10/24 Meclizine HCl (Meclizine HCl) 25 Mg Tablet, 25 MG PO QID PRN for DIZZINESS, #30 TAB 0 Refills Prov:LOUIS HENDERSON AGACNP 10/10/24 Reported Medications Metformin HCl (Metformin HCl) 1,000 Mg Tablet, 1 TAB PO BID for 30 Days, #60 TAB 0 Refills 10/08/24 Past Medical History Past Medical History: Diabetes-Type I, Diabetes-Type II, High Cholesterol, Hypertension, Hypotension Additional Past Medical Hx: NON CPMPLIANT W/MEDS Surgical History: None Family History: Negative Social History: Negative RN Note Reviewed/Agreed w/PFSH: Yes Review of System Dictation Constitutional: Negative for chills, and weight loss positive for fever Eyes: Negative for injury, pain,redness, and discharge ENT: Negative for injury,pain or swelling positive for sore throat Cardiovascular: Negative for chest pain, palpitations, and edema Respiratory: Negative for shortness of breath and wheezing, positive for cough, Abdomen/GI: Negative for abdominal pain, nausea, vomiting, diarrhea, and constipation Back: Negative for injury and pain : Negative for injury, bleeding and discharge MS/Extremity: Negative for injury and deformity Skin: Negative for rash, and discoloration Neuro: Negative for headache, weakness, numbness, tingling, and seizure Psych: Negative for suicide ideation, homicidal ideation, and hallucinations Initial Vital Sign VS Vital Signs Date Time Temp Pulse Resp B/P (MAP) Pulse Ox O2 Delivery O2 Flow Rate FiO2 06/05/25 17:33 99.1 91 20 105/70 99 Room Air Physical Exam Dictation Vital Signs reviewed General Appearance: Alert, oriented x 3, no acute distress, well developed, nourished. Head and Face: non-traumatic. Eyes: PERRL, pink conjunctivas, eyelid no trauma, anterior chamber with arcus senilis. Ears: Pinnas intact and no signs of trauma or erythema ear canals clear and no discharge TM no erythema Nose: No discharge, no bleeding. Oropharynx: Mouth normal, tongue pink. pharynx clear,no erythema, tonsils no exudates, no abscesses noted, mucous membrane moist Neck: Supple, non-tender, no thyromegaly, no masses, no JVD, no bruits Breast:Deferred Chest:No tenderness, no crepitus, no paradoxical movement, no retractions Lungs:Clear, well-ventilated, symmetric, no rales, no wheezing, no rhonchi, no stridor, good breath sounds bilaterally Heart: Regular rate, regular rhythm, no murmur, no gallops Vascular: no peripheral edema, Abdomen: Soft, positive bowel sounds, nondistended, no guarding, nontender, no rebound, no masses no hepatomegaly, no splenomegaly, no Joseph's sign, no hernias. Rectal: Deferred Genital: Deferred Neurological: Normal speech, motor function intact, sensory function intact Musculoskeletal: Neck nontender, full range of motion, back nontender, full range of motion, Extremities: nontender, full range of motion Skin: Color pink, dry, no turgor, no rash, no lacerations, no abrasions, no contusions. Lymphatic: Deferred Results (Laboratory/Radiology) Laboratory/Radiology Laboratory Tests Test 06/05/25 20:07 Influenza Type A Antigen Negative For Type A Influenza Type B Antigen Negative For Type B SARS-CoV-2 Antigen (Rapid) PRESUMPTIVE NEGATIVE Group A Streptococcus Rapid negative (NEGATIVE) REASON: cough ORDERING PHYSICIAN: CASA DEWITT DELINQUENT TAX COLLECTOR ASSISTANT PROCEDURE: CXR1VW - CHEST 1VW EXAM: CR Chest, 1 View. CLINICAL HISTORY: cough COMPARISON: None provided. FINDINGS: LUNGS: The lungs show no infiltrate or other acute finding. PLEURAL SPACES: No evidence of pleural effusion or pneumothorax. MEDIASTINUM: Cardiac size and mediastinal contours within normal limits. BONES: No aggressive appearing osseous lesion seen. IMPRESSION: No acute cardiopulmonary pathology is evident. /[place] Labs Reviewed?: Yes ED Course ED Course Orders Procedure Category Date Status Time Covid19 (Sars Antigen LAB 06/05/25 Complete Rapid) 17:51 Influenza Type A & B, LAB 06/05/25 Complete Rapid 17:51 Rapid (Group A Strep) LAB 06/05/25 Complete 17:51 Chest 1vw RAD 06/05/25 Resulted 17:51 Guaifenesin-Codeine PHA 06/05/25 Complete Syrup 5ml (Robitussi 18:00 Acetaminophen 500mg PHA 06/05/25 Complete Tab (Tylenol 500mg T 18:00 Current Medications Medications (Trade) Dose Ordered Sig/Anjana Route PRN Reason Start Time Stop Time Status Last Admin Dose Admin Acetaminophen (TYLenol 500MG TAB) 1,000 mg ONCE ONCE PO 06/05/25 18:00 06/05/25 18:01 DC 06/05/25 20:07 Guaifenesin/ Codeine Phosphate (RobiTUSSin AC 5 ML SYRUP) 10 ml ONCE ONCE PO 06/05/25 18:00 06/05/25 18:01 DC 06/05/25 20:06 Vital Signs Date Time Temp Pulse Resp B/P (MAP) Pulse Ox O2 Delivery O2 Flow Rate FiO2 06/05/25 20:07 99.0 06/05/25 17:33 99.1 91 20 105/70 99 Room Air Medical Decision Making MDM The patient is a 49-year-old male with a history of diabetes who presents to the emergency department with complaints of sore throat, nonproductive cough, fevers, headache for the last three days. Patient reports that family members at home have similar symptoms. Serology was negative. Chest x-ray did no showe any infiltrates. On physical exam patient is in no acute distress, nontoxic appearance, stable vital signs. Patient with clear lung sounds. Patient has symptoms consistent with a viral URI. We will discharge patient to follow up with PCP. Differential diagnosis: URI, pneumonia, strep throat Need for hospitalization: Patient does not meet criteria for hospitalization. There are no social concerns with this patient. DX & DISP Disposition: Discharge Departure Impression: Primary Impression: Viral URI with cough Condition: Stable Scripts Guaifenesin/Dextromethorphan (Robitussin Cough-Chest Dm Liq) 100 Mg-5 Mg/5 Ml Liquid 10 ML PO Q8H for 7 Days, #210 ML 0 Refills Prov: CASA DEWITT 06/05/25 Additional Instructions: Saliste negativo en tus laboratorios del covid y flu. Tu radiografia del pecho no ensena ningun pneumonia. Visita tu doctor de cavezera en 1-2 shea. Si aglo empeorar regresa a emergencia. Referrals: SELF,REFERRAL (PCP) Time of Disposition: 20:59 I have reviewed the case, and I agree with, Diagnosis and Plan CASA DEWITT Jun 05, 2025 20:54
[2025-06-05] MEDS ORDERED: GUAI237L82 PO (21:00)
== END 2025-06-05 21:05 | disposition home or self-care (01) ==
LOC: EDH 17:32
DX: J06.9 Acute upper respiratory infection, unspecified (principal); E10.9 Type 1 diabetes mellitus without complications; E78.00 Pure hypercholesterolemia, unspecified; I10 Essential (primary) hypertension; Z20.822 Contact with and (suspected) exposure to COVID-19; Z79.4 Long term (current) use of insulin; Z79.84 Long term (current) use of oral hypoglycemic drugs
CPT/HCPCS: 71045; 87426; 87804; 87880; 99284